=== PATIENT | female | born 1970 | race Caucasian/White ===

== ENCOUNTER 2016-09-22 16:09 | Inpatient (IN) | payer OTHER ==
[2016-09-22 16:19] VITALS: BMI 33.3
--- NOTE | 2016-09-22 16:38 | PDOC ---
History of Present Illness <Akanksha Cantu - Last Filed: 09/23/16 00:52> <Moni Sabillon - Last Filed: 09/23/16 18:34> - General Chief Complaint: Syncope/Near Syncope Stated Complaint: SYNCOPE Time Seen by Provider: 09/22/16 16:32 - History of Present Illness Initial Comments: 09/22/16 16:49 The patient is a 46 year old female, with a significant past medical history of bipolar disorder anxiety, who presents to the emergency department s/p syncopal episode while cleaning today. She states she became lightheaded and dizzy around 11:30AM, a couple hours after eating breakfast. She states she was mopping, became more dizzy and grabbed a glass of water. She states she became weak, dropped the glass of water and sat down. She reports momentarily fainting in the seat but denies falling. She reports her daughter witnessed this event and brought her to the ED. She states she is currently on her menstrual cycle. She reports increasing her lexapro a month ago. She reports throat pain and jaw pain last night, but states she is scheduled for oral surgery for periodontal disease soon. She denies chest pain, shortness of breath, and headache. She denies fever, chills, nausea, vomit, diarrhea and constipation. She denies dysuria, frequency , urgency and hematuria. Allergies: penicillins Past surgical history: cholecystectomy Social history: denies toxic habits (Akanksha Cantu) Past History <Akanksha Cantu - Last Filed: 09/23/16 00:52> - Past Medical History Psychiatric Problems: Yes (depression) - Surgical History Cholecystectomy: Yes - Immunization History Immunization Up to Date: Yes - Psycho/Social/Smoking Cessation Hx Anxiety: Yes (no medicine) Suicidal Ideation: No Smoking History: Never smoked Have you smoked in the past 12 months: No Hx Alcohol Use: No Drug/Substance Use Hx: No Substance Use Type: None <Moni Sabillon - Last Filed: 09/23/16 18:34> - Past Medical History Allergies/Adverse Reactions: Allergies Allergy/AdvReac Type Severity Reaction Status Date / Time nickel Allergy Verified 09/22/16 16:18 Penicillins Allergy Verified 09/22/16 16:18 Home Medications: Ambulatory Orders Bupropion HCl [Bupropion Xl] 300 mg PO DAILY 09/22/16 Escitalopram Oxalate [Lexapro -] 20 mg PO DAILY 09/22/16 Hydralazine HCl 10 mg PO BID 09/22/16 Risperidone 4 mg PO HS 09/22/16 Topiramate 50 mg PO BID 09/22/16 Zolpidem Tartrate [Ambien] 10 mg PO DAILY 09/22/16 Cardiac Specific PMH - Complaint Specific PMHX Angina: No Pulmonary Embolus: No <Moni Sabillon - Last Filed: 09/23/16 18:34> Review of Systems - Review of Systems Able to Perform ROS?: Yes <Akanksha Cantu - Last Filed: 09/23/16 00:52> <Moni Sabillon - Last Filed: 09/23/16 18:34> - Review of Systems Comments:: 09/22/16 16:49 CONSTITUTIONAL: Absent: fever, chills, diaphoresis, generalized weakness, malaise, loss of appetite HEENT: (+) Jaw pain and throat pain. Absent: rhinorrhea, nasal congestion, throat swelling, difficulty swallowing, mouth swelling, ear pain, eye pain, visual Changes CARDIOVASCULAR: (+) syncope, lightheadedness. Absent: chest pain, palpitations, irregular heart rate, peripheral edema RESPIRATORY: Absent: cough, shortness of breath, dyspnea with exertion, orthopnea, wheezing, stridor, hemoptysis GASTROINTESTINAL: Absent: abdominal pain, abdominal distension, nausea, vomiting, diarrhea, constipation, melena, hematochezia GENITOURINARY: Absent: dysuria, frequency, urgency, hesitancy, hematuria, flank pain, genital pain MUSCULOSKELETAL: Absent: myalgia, arthralgia, joint swelling SKIN: Absent: rash, itching, pallor HEMATOLOGIC/IMMUNOLOGIC: Absent: easy bleeding, easy bruising, lymphadenopathy, frequent infections ENDOCRINE: Absent: unexplained weight gain, unexplained weight loss, heat intolerance, cold intolerance NEUROLOGIC: (+) dizziness, Absent: headache, focal weakness or paresthesias, unsteady gait, seizure, mental status changes, bladder or bowel incontinence PSYCHIATRIC: Absent: anxiety, depression, suicidal or homicidal ideation, hallucinations. ( Akanksha Cantu) *Physical Exam <Akanksha Cantu - Last Filed: 09/23/16 00:52> <Moni Sabillon Last Filed: 09/23/16 18:34> - Vital Signs Last Vital Signs Temp Pulse Resp BP Pulse Ox 99.3 F 100 H 20 147/81 98 09/23/16 18:00 09/23/16 18:00 09/23/16 18:00 09/23/16 18:00 09/23/16 12:00 - Physical Exam Comments: 09/22/16 16:51 GENERAL: Well developed, well nourished. Awake and alert. No acute distress. HEENT: Normocephalic, atraumatic. PERRLA, EOMI. No conjunctival pallor. Sclera are non- icteric. Moist mucous membranes. Oropharynx is clear. NECK: Supple. Full ROM. No JVD. Carotid pulses 2+ and symmetric, without bruits. No thyromegaly. No lymphadenopathy. CARDIOVASCULAR: Regular rate and rhythm. No murmurs, rubs, or gallops. Distal pulses are 2+ and symmetric. PULMONARY: No evidence of respiratory distress. Lungs clear to auscultation bilaterally. No wheezing, rales or rhonchi. ABDOMINAL: Soft. Non-tender. Non-distended. No rebound or guarding. No organomegaly. Normoactive bowel sounds. MUSCULOSKELETAL Normal range of motion at all joints. No bony deformities or tenderness. No CVA tenderness. EXTREMITIES: No cyanosis. No clubbing. No edema. No calf tenderness. SKIN: Warm and dry. Normal capillary refill. No rashes. No jaundice. NEUROLOGICAL: Alert, awake, appropriate. Cranial nerves 2-12 intact. Normoreflexic in the upper and lower extremities. Normal speech. Toes are down-going bilaterally. Gait is normal without ataxia. PSYCHIATRIC: Cooperative. Good eye contact. Appropriate mood and affect. (Akanksha Cantu) Heart Score/ECG Review <Akanksha Cantu - Last Filed: 09/23/16 00:52> <Moni Sabillon - Last Filed: 09/23/16 18:34> - [place] Comment: 09/23/16 00:53 EKG was read by Dr. Sabillon at 16:31 Impression: Normal Sinus Rhythm (Akanksha Cantu) ED Treatment Course - LABORATORY CBC & Chemistry Diagram: 09/22/16 16:48 09/22/16 16:48 <Akanksha Cantu - Last Filed: 09/23/16 00:52> - LABORATORY CBC & Chemistry Diagram: 09/23/16 05:35 09/23/16 05:35 <RidgeMoni Wright - Last Filed: 09/23/16 18:34> - ADDITIONAL ORDERS Additional order review: Laboratory Results 09/23/16 05:35 Sodium 141 Potassium 4.0 Chloride 110 H Carbon Dioxide 22 Anion Gap 9 BUN 13 D Creatinine 0.8 D Random Glucose 95 Calcium 8.4 L Phosphorus 3.0 Magnesium 1.9 Ferritin 3.362 L Creatine Kinase 92 Troponin I < 0.02 Triglycerides 49 Cholesterol 168 Total LDL Cholesterol 69 HDL Cholesterol 97 H 09/23/16 09/22/16 05:35 16:48 RBC 3.35 L 3.42 L MCV 68.1 L 68.4 L MCHC 31.2 L 30.4 L RDW 17.3 H 17.0 H MPV 8.7 8.4 D Neutrophils % 61.1 D 79.0 D Lymphocytes % 29.2 D 14.4 D Monocytes % 8.1 5.5 Eosinophils % 0.5 0.3 D Basophils % 1.1 0.8 - RADIOLOGY Radiology Studies Ordered: Category Date Time Status HEAD CT WITHOUT CONTRAST [CT] Stat CT Scan 09/22/16 17:48 Completed CHEST PA & LAT [RAD] Stat Radiology 09/23/16 00:42 Completed Radiograph Interpretation: 09/22/16 19:13 EXAM: HEAD CT WITHOUT CONTRAST was read by Mahogany Ceja MD at 19:05 EST FINDINGS: No acute intracranial hemorrhage, midline shift or extra-axial collection. No acute territorial infarction. Sinuses and mastoid air cells are clear. No acute calvarial fracture. (Akanksha Cantu) - Medications Given in the ED: ED Medications Discontinued Medications Generic Name Dose Route Start Last Admin Trade Name Freq PRN Reason Stop Dose Admin Sodium Chloride 1,000 mls @ 42 mls/hr 09/22/16 16:45 09/22/16 16:58 Normal Saline - IV 42 mls/hr ASDIR JOSÉ MIGUEL Administration Levofloxacin 100 mls @ 100 mls/hr 09/22/16 21:09 09/22/16 21:52 Levaquin 500 Mg Premixed Ivpb - IVPB 09/22/16 22:08 100 mls/hr ONCE ONE Administration Influenza Virus Vaccine 45 mcg 09/23/16 09:00 09/23/16 10:12 Fluvirin IM 09/23/16 09:01 45 mcg .ONCE ONE Administration Zolpidem Tartrate 10 mg 09/23/16 00:50 09/23/16 02:03 Ambien - PO 09/23/16 00:51 Not Given ONCE ONE Medical Decision Making <Akanksha Cantu - Last Filed: 09/23/16 00:52> <Moni Sabillon - Last Filed: 09/23/16 18:34> - Medical Decision Making 09/22/16 16:48 46 yo female was mopping her floor and started and fainted . she actually sat down and went to drink some water when she fainted and her water glass smashed to the floor -pt didn't have significant chest pain but did feel very lightheaded. -orthostatics were done by the RN and the pt BP did not change with positiion -cardiac enzyme was negative,no acute signs of ischemia on ekg -ct head negative for any acute intracranial pathology -pt admitted to telemetry and case discussed e Dr Francis who admitted this pt 09/23/16 18:27 (Moni Sabillon) *DC/Admit/Observation/Transfer <Akanksha Cantu - Last Filed: 09/23/16 00:52> - Discharge Dispostion Admit: Yes <Moni Sabillon - Last Filed: 09/23/16 18:34> Diagnosis at time of Disposition: Lightheadedness Syncope Qualifiers: Syncope type: unspecified Qualified Code(s): R55 - Syncope and collapse Anemia Qualifiers: Anemia type: unspecified type Qualified Code(s): D64.9 - Anemia, unspecified - Attestations Scribe Attestion: 09/22/16 16:51 Documentation prepared by Akanksha Cantu, acting as medical laboratory specialist for Moni Sabillon MD (Akanksha Cantu)
[2016-09-22] MEDS ORDERED: SODIUM CHLORIDE 1,000 ML IV SCH (16:45)
[2016-09-22 17:01] LABS: BASOPHIL 0.8 % (0-2.0); EOSINOPHIL 0.3 % (0-4.5); MCH 20.8 pg (25.7-33.7); MCHC 30.4 g/dl (32.0-36.0); MEAN CELL VOLUME 68.4 fl (80-96); MEAN PLT VOLUME 8.4 fl (7.5-11.1); PLATELET COUNT 354 K/MM3 (134-434); WHITE BLOOD COUNT 8.1 K/mm3 (4.0-10.0)
[2016-09-22 17:27] LABS: ANISOCYTOSIS 1+; HYPOCHROMIA 3+; MICROCYTOSIS 1+; OVALOCYTES 1+; PLATELET ESTIMATE ADEQUATE (NORMAL); POIKILOCYTOSIS 1+; POLYCHROMASIA 1+; TARGET CELLS FEW
[2016-09-22 17:36] LABS: ALBUMIN 3.3 g/dl (3.4-5.0); ANION GAP 10 (8-16); BILIRUBIN,TOTAL 0.4 mg/dL (0.2-1.0); CALCIUM 8.3 mg/dL (8.5-10.1); CO2 22 mmol/L (21-32); CREATININE 1.2 mg/dL (0.55-1.02); GLUCOSE,RANDOM 109 mg/dL (74-106); SGOT/AST 16 U/L (15-37); SGPT/ALT 17 U/L (12-78); TOT PROT 6.5 g/dl (6.4-8.2)
[2016-09-22 17:38] LABS: ALK PHOS 63 U/L (45-117); TROPONIN I < 0.02 ng/ml (0.00-0.05)
[2016-09-22 19:35] LABS: URINE APPEARANCE SL CLOUDY; URINE BILIRUBIN NEGATIVE (NEGATIVE); URINE BLOOD 3+ (NEGATIVE); URINE COLOR RED; URINE GLUCOSE (UA) NEGATIVE (NEGATIVE); URINE KETONE TRACE (NEGATIVE); URINE LEUK ESTERASE 1+ (NEGATIVE); URINE NITRITE POSITIVE (NEGATIVE); URINE PROTEIN 3+ (NEGATIVE); URINE UROBILINOGEN 1.0 E.U/dl E.U./dl (0.2-1.0)
[2016-09-22 19:48] LABS: URINE RBC 1000 /hpf (0-3); URINE WBC SMALL /hpf (3-5)
[2016-09-22 19:49] LABS: URINE BACTERIA MODERATE /hpf (NONE SEEN); URINE MUCUS 3+
[2016-09-22 20:04] LABS: URINE MARIJUANA THC NEGATIVE ng/ml (CUTOFF=50)
[2016-09-22] MEDS ORDERED: LEVOFLOXACIN 500 MG IVPB 100 ML IVPB ONE (21:09)
[2016-09-22 22:30] LABS: TROPONIN I < 0.02 ng/ml (0.00-0.05)
--- NOTE | 2016-09-23 00:54 | HP ---
CHIEF COMPLAINT: Lightheaded, Syncope PCP: HISTORY OF PRESENT ILLNESS: This is a 46 y/o female with a past medical history of Bipolar Depression, Chronic UTIs, BIBI. Who presents to the emergency department with lightheadedness , syncope x 1 day. Patient reports increased fatigue, dizziness with having a syncopal episode < 30 secs, while mopping her floors. Patient reports having her menstrual period Day 2- heavy without clots using 2PDs/hr. Patient reports being told she has BIBI last year while in the Psych Unit at [facility]. She reports not doing a f/u with a PMD. Patient reports being told she has a "tumor" on her uterus years ago, last SUSTAINABILITY COORDINATOR exam > 5 yrs. Patient denies fever, chills, cough, SOB, CP, V/D, constipation, dysuria ER course was notable for: (1) CT Brain- negative ICH, mass or lesion (2) Hgb 7.1 (3) CHIVO- 2.0/1.2 Recent Travel: None PAST MEDICAL HISTORY: See HPI PAST SURGICAL HISTORY: x2 Cholecystectomy Social History: Smoking: Never Alcohol: None Drugs: None Lives alone Family History: Grandmother: Diabetes Mellitus Allergies nickel Allergy (Verified 09/22/16 16:18) Penicillins Allergy (Verified 09/22/16 16:18) HOME MEDICATIONS: Home Medications Medication Instructions Recorded Bupropion HCl [Bupropion Xl] 300 mg PO DAILY 09/22/16 Escitalopram Oxalate [Lexapro -] 20 mg PO DAILY 09/22/16 Hydralazine HCl 10 mg PO BID 09/22/16 Risperidone 4 mg PO HS 09/22/16 Topiramate 50 mg PO BID 09/22/16 Zolpidem Tartrate [Ambien] 10 mg PO DAILY 09/22/16 REVIEW OF SYSTEMS CONSTITUTIONAL: fatigue Absent: fever, chills, diaphoresis, generalized weakness, malaise, loss of appetite, weight change HEENT: Absent: rhinorrhea, nasal congestion, throat pain, throat swelling, difficulty swallowing, mouth swelling, ear pain, eye pain, visual changes CARDIOVASCULAR: syncope, lightheadedness Absent: chest pain, palpitations, irregular heart rate, lightheadedness, peripheral edema RESPIRATORY: Absent: cough, shortness of breath, dyspnea with exertion, orthopnea, wheezing, stridor, hemoptysis GASTROINTESTINAL: abdominal pain Absent: abdominal distension, nausea, vomiting, diarrhea, constipation, melena , hematochezia GENITOURINARY: Absent: dysuria, frequency, urgency, hesitancy, hematuria, flank pain, genital pain MUSCULOSKELETAL: Absent: myalgia, arthralgia, joint swelling, back pain, neck pain SKIN: Absent: rash, itching, pallor HEMATOLOGIC/IMMUNOLOGIC: Absent: easy bleeding, easy bruising, lymphadenopathy, frequent infections ENDOCRINE: Absent: unexplained weight gain, unexplained weight loss, heat intolerance, cold intolerance NEUROLOGIC: dizziness Absent: headache, focal weakness or paresthesias, unsteady gait, seizure, mental status changes, bladder or bowel incontinence PSYCHIATRIC: Absent: anxiety, depression, suicidal or homicidal ideation, hallucinations. PHYSICAL EXAMINATION Vital Signs - 24 hr 09/22/16 09/22/16 09/22/16 16:16 23:22 23:29 Temperature 98.3 F Pulse Rate 100 H Pulse Rate [ 95 H 106 H Apical] Respiratory 20 Rate Blood Pressure 128/80 Blood Pressure 139/85 [Left Arm] O2 Sat by Pulse 100 Oximetry (%) 09/22/16 23:30 Temperature Pulse Rate Pulse Rate [ 109 H Apical] Respiratory Rate Blood Pressure Blood Pressure 129/89 [Left Arm] O2 Sat by Pulse Oximetry (%) GENERAL: Awake, alert, fully oriented, and anxious in no acute distress. HEAD: Normal with no signs of trauma. EYES: Pupils equal, round and reactive to light, extraocular movements intact, sclera anicteric, conjunctiva clear. No lid lag. EARS, NOSE, THROAT: Ears normal, nares patent, oropharynx clear without exudates. Moist mucous membranes. NECK: Normal range of motion, supple without lymphadenopathy, JVD, or masses. LUNGS: Breath sounds equal, clear to auscultation bilaterally. No wheezes, and no crackles. No accessory muscle use. HEART: Regular rate and rhythm, normal S1 and S2 without murmur, rub or gallop. ABDOMEN: Soft, obese, +tenderness to lower aspect, not distended, normoactive bowel sounds, no guarding, no rebound, no masses. No hepatomegaly or splenomegaly. MUSCULOSKELETAL: Normal range of motion at all joints. No bony deformities or tenderness. No CVA tenderness. UPPER EXTREMITIES: 2+ pulses, warm, well-perfused. No cyanosis. No clubbing. Cap refill <2 seconds. No peripheral edema. LOWER EXTREMITIES: 2+ pulses, warm, well-perfused. No calf tenderness. No peripheral edema. NEUROLOGICAL: Cranial nerves II-XII intact. Normal speech. Gait not observed. PSYCHIATRIC: Cooperative. Good eye contact. Appropriate mood and affect. SKIN: Warm, dry, normal turgor, no rashes or lesions noted. Laboratory Results - last 24 hr 09/22/16 09/22/16 09/22/16 16:48 16:48 16:48 WBC 8.1 RBC 3.42 L Hgb 7.1 L D Hct 23.4 L MCV 68.4 L MCHC 30.4 L RDW 17.0 H Plt Count 354 MPV 8.4 D Neutrophils % 79.0 D Lymphocytes % 14.4 D Monocytes % 5.5 Eosinophils % 0.3 D Basophils % 0.8 Platelet Estimate Adequate Platelet Comment No clumping noted Polychromasia 1+ Hypochromic-Microcytic 3+ Poikilocytosis 1+ Basophilic Stippling 1+ Anisocytosis 1+ Microcytosis 1+ Target Cells Few Ovalocytes 1+ Sodium 140 Potassium 4.2 Chloride 108 H Carbon Dioxide 22 Anion Gap 10 BUN 20 H D Creatinine 1.2 H D Creat Clearance w eGFR 48.36 Random Glucose 109 H Calcium 8.3 L Total Bilirubin 0.4 D AST 16 D ALT 17 D Alkaline Phosphatase 63 D Creatine Kinase 94 Troponin I < 0.02 Total Protein 6.5 Albumin 3.3 L HDL Cholesterol 100 H Serum , Qual Negative Urine Color Red Urine Appearance Sl cloudy Urine pH 7.0 Ur Specific [place] 1.020 Urine Protein 3+ H Urine Glucose (UA) Negative Urine Ketones Trace H Urine Blood 3+ H Urine Nitrite Positive Urine Bilirubin Negative Urine Urobilinogen 1.0 e.u/dl Ur Leukocyte Esterase 1+ H Urine RBC 1000 Urine WBC Small Ur Epithelial Cells Rare Urine Bacteria Moderate Urine Mucus 3+ Opiates Screen Methadone Screen Barbiturate Screen Phencyclidine Screen Ur Amphetamines Screen MDMA (Ecstasy) Screen Benzodiazepines Screen Cocaine Screen U Marijuana (THC) Screen 09/22/16 09/22/16 16:48 21:45 WBC RBC Hgb Hct MCV MCHC RDW Plt Count MPV Neutrophils % Lymphocytes % Monocytes % Eosinophils % Basophils % Platelet Estimate Platelet Comment Polychromasia Hypochromic-Microcytic Poikilocytosis Basophilic Stippling Anisocytosis Microcytosis Target Cells Ovalocytes Sodium Potassium Chloride Carbon Dioxide Anion Gap BUN Creatinine Creat Clearance w eGFR Random Glucose Calcium Total Bilirubin AST ALT Alkaline Phosphatase Creatine Kinase 114 Troponin I < 0.02 Total Protein Albumin HDL Cholesterol Serum , Qual Urine Color Urine Appearance Urine pH Ur Specific [place] Urine Protein Urine Glucose (UA) Urine Ketones Urine Blood Urine Nitrite Urine Bilirubin Urine Urobilinogen Ur Leukocyte Esterase Urine RBC Urine WBC Ur Epithelial Cells Urine Bacteria Urine Mucus Opiates Screen Negative Methadone Screen Negative Barbiturate Screen Negative Phencyclidine Screen Negative Ur Amphetamines Screen Negative MDMA (Ecstasy) Screen Negative Benzodiazepines Screen Negative Cocaine Screen Negative U Marijuana (THC) Screen Negative - RADIOLOGY Radiograph Interpretation: 09/22/16 19:13 EXAM: HEAD CT WITHOUT CONTRAST was read by Mahogany Ceja MD at 19:05 EST FINDINGS: No acute intracranial hemorrhage, midline shift or extra-axial collection. No acute territorial infarction. Sinuses and mastoid air cells are clear. No acute calvarial fracture. ASSESSMENT/PLAN: This is a 46 y/o female with a PMHx of: Bipolar Depression, BIBI. Who presents to the ED with lightheadedness, syncope. Placed in Tele Observation for Syncope , Symptomatic Anemia for further evaluation for their emergent condition. Plan: 1. Syncope - Likely secondary to Anemia vs Arrhythmia - Tele monitoring - CT Brain- neg ICH, mass or lesion - EKG: NSR with T wave abnormality - Echo and Carotid Doppler in am - Cardiac Enzymes neg x2 - Will continue to trend 2. Anemia - Likely secondary to BIBI vs Fibroid vs Perimenopausal - Baseline 8.6 - Discussed need for a blood transfusion with patient, including risks and benefits, patient adamantly refused. - FE, TIBC, Ferritin add on-pending - Will monitor CBC closely - Ferrous Sulfate - f/u with Heme, SUSTAINABILITY COORDINATOR, and PCP in outpatient 3. UTI - +nitrate, +3 protein, +1 leukocyte esterase, mod bacteria - Urine Culture-pending - Levofloxacin given in ED - Will continue Levofloxacin (no cephalosporins with PCN allergy hx) - Monitor vitals, CBC 4. CHIVO - Likely secondary to UTI - Gentle IVF - Monitor renal function 5. Bipolar Depression - Patient denies Suicidal or Homicidal Ideation at present - Continue home meds 6. FEN - PO Fluids tolerated - Replete lytes prn - Regular Diet 7. DVT Prophylaxis - OOB - SCDs - Hold ACs secondary to Anemia Code Status: Full Code Problem List - Problem (1) Anemia Code(s): D64.9 - ANEMIA, UNSPECIFIED Qualifiers: Anemia type: unspecified type Qualified Code(s): D64.9 - Anemia, unspecified (2) Syncope Code(s): R55 - SYNCOPE AND COLLAPSE Qualifiers: Syncope type: unspecified Qualified Code(s): R55 - Syncope and collapse (3) Lightheadedness Code(s): R42 - DIZZINESS AND GIDDINESS (4) UTI (urinary tract infection) Code(s): N39.0 - URINARY TRACT INFECTION, SITE NOT SPECIFIED (5) CHIOV (acute kidney injury) Code(s): N17.9 - ACUTE KIDNEY FAILURE, UNSPECIFIED (6) Depression Code(s): F32.9 - MAJOR DEPRESSIVE DISORDER, SINGLE EPISODE, UNSPECIFIED Qualifiers: Depression Type: major depressive disorder Major depression recurrence : recurrent Active/Remission status: currently active Major depression episode severity: severe Psychotic features: without psychotic features Qualified Code(s): F33.2 - Major depressive disorder, recurrent severe without psychotic features (7) DVT prophylaxis Code(s): CLZ4296 - Visit type - Emergency Visit Emergency Visit: Yes Care time: The patient presented to the Emergency Department on the above date and was hospitalized for further evaluation of their emergent condition. - New Patient This patient is new to me today: Yes Date on this admission: 09/23/16 - Critical Care Critical Care patient: No
[2016-09-23] MEDS: ZOLPIDEM TARTRATE 5 MG TABLET PO ONE ×2 (01:41→02:03)
[2016-09-23] MEDS ORDERED: ZOLPIDEM TARTRATE 5 MG TABLET ONE (01:43)
[2016-09-23] MEDS ORDERED: diphenhydrAMINE HCL 25 MG CAPSULE (FP) PO ONE ×2 (02:05→21:41)
[2016-09-23 07:15] LABS: BASOPHIL 1.1 % (0-2.0); EOSINOPHIL 0.5 % (0-4.5); MCH 21.3 pg (25.7-33.7); MCHC 31.2 g/dl (32.0-36.0); MEAN CELL VOLUME 68.1 fl (80-96); MEAN PLT VOLUME 8.7 fl (7.5-11.1); NEUTROPHILS 61.1 % (42.8-82.8); PLATELET COUNT 356 K/MM3 (134-434); RDW 17.3 % (11.6-15.6); WHITE BLOOD COUNT 5.5 K/mm3 (4.0-10.0)
[2016-09-23 07:55] LABS: ANION GAP 9 (8-16); CALCIUM 8.4 mg/dL (8.5-10.1); CO2 22 mmol/L (21-32); CREATININE 0.8 mg/dL (0.55-1.02); GLUCOSE,RANDOM 95 mg/dL (74-106); MAGNESIUM 1.9 mg/dL (1.8-2.4)
[2016-09-23 08:00] LABS: CHOLESTEROL 168 mg/dL (50-200); LDL CHOLESTEROL (ONLY SJRH) 69 mg/dL (5-100); TROPONIN I < 0.02 ng/ml (0.00-0.05)
[2016-09-23] MEDS ORDERED: INFLUENZA VACCINE 45 MCG/0.5 ML (MDV 16-17) IM ONE (09:00)
--- NOTE | 2016-09-23 09:27 | PN ---
Teaching Attending Note Name of Resident: Esthela Cervantes ATTENDING PHYSICIAN STATEMENT I saw and evaluated the patient. I reviewed the resident's note and discussed the case with the resident. I agree with the resident's findings and plan as documented. Patient feels lightheaded when stands up, having heavy menstrual bleed for the 1st time. refusing blood transfusion since afraid that will get HIV or hepatitis C On the monitor patient's HR is 106. Vital Signs Temperature 99.2 F 09/23/16 04:12 Pulse Rate 84 09/23/16 04:12 Respiratory Rate 18 09/23/16 04:12 Blood Pressure 127/75 09/23/16 04:12 O2 Sat by Pulse Oximetry (%) 100 09/23/16 04:08 CBCD WBC 5.5 K/mm3 (4.0-10.0) D 09/23/16 05:35 RBC 3.35 M/mm3 (3.60-5.2) L 09/23/16 05:35 Hgb 7.1 GM/dL (10.7-15.3) L 09/23/16 05:35 Hct 22.8 % (32.4-45.2) L 09/23/16 05:35 MCV 68.1 fl (80-96) L 09/23/16 05:35 MCHC 31.2 g/dl (32.0-36.0) L 09/23/16 05:35 RDW 17.3 % (11.6-15.6) H 09/23/16 05:35 Plt Count 356 K/MM3 (134-434) 09/23/16 05:35 MPV 8.7 fl (7.5-11.1) 09/23/16 05:35 CMP Sodium 141 mmol/L (136-145) 09/23/16 05:35 Potassium 4.0 mmol/L (3.5-5.1) 09/23/16 05:35 Chloride 110 mmol/L (98-107) H 09/23/16 05:35 Carbon Dioxide 22 mmol/L (21-32) 09/23/16 05:35 Anion Gap 9 (8-16) 09/23/16 05:35 BUN 13 mg/dL (7-18) D 09/23/16 05:35 Creatinine 0.8 mg/dL (0.55-1.02) D 09/23/16 05:35 Creat Clearance w eGFR 48.36 (>60) 09/22/16 16:48 Random Glucose 95 mg/dL (74-106) 09/23/16 05:35 Calcium 8.4 mg/dL (8.5-10.1) L 09/23/16 05:35 Total Bilirubin 0.4 mg/dL (0.2-1.0) D 09/22/16 16:48 AST 16 U/L (15-37) D 09/22/16 16:48 ALT 17 U/L (12-78) D 09/22/16 16:48 Alkaline Phosphatase 63 U/L (45-117) D 09/22/16 16:48 Total Protein 6.5 g/dl (6.4-8.2) 09/22/16 16:48 Albumin 3.3 g/dl (3.4-5.0) L 09/22/16 16:48 CARDIAC ENZYMES Creatine Kinase 92 IU/L (26-192) 09/23/16 05:35 Troponin I < 0.02 ng/ml (0.00-0.05) 09/23/16 05:35 Current Medications Generic Name Dose Route Start Last Admin Trade Name Freq PRN Reason Stop Dose Admin Sodium Chloride 1,000 mls @ 42 mls/hr 09/22/16 16:45 09/22/16 16:58 Normal Saline - IV 42 mls/hr ASDIR JOSÉ MIGUEL Administration Levofloxacin 100 mls @ 100 mls/hr 09/23/16 10:00 Levaquin 500 Mg Premixed Ivpb - IVPB DAILY [facility] Home Medications Medication Instructions Recorded Bupropion HCl [Bupropion Xl] 300 mg PO DAILY 09/22/16 Escitalopram Oxalate [Lexapro -] 20 mg PO DAILY 09/22/16 Hydralazine HCl 10 mg PO BID 09/22/16 Risperidone 4 mg PO HS 09/22/16 Topiramate 50 mg PO BID 09/22/16 Zolpidem Tartrate [Ambien] 10 mg PO DAILY 09/22/16 ASSESSMENT AND PLAN: This is a 46 y/o female with a PMHx of: Bipolar Depression who presents to the ED with lightheadedness, syncope and having heavy menstruation. # s/p syncope due to acute anemia continue to monitor in tele. Cardiac Enzymes neg x2 #Acute Microcytic anemia due to heavy menstrual bleed patient is refusing transfusion since afraid that will get HIv ot Hepatitis C. - Baseline 8.6, FE, TIBC, Ferritin add on-pending, Hematology consult since patient refusing transfusion possible Iron transfusion or Growth Factor to be given - Will monitor CBC , Ferrous Sulfate po. # Heavy mentrual bleed will get OBGYN to be consulted # Acute UTI will continue with Levaquin IV since patient is allergic to PCN # CHIVO on IVF improved 1.2-->0.8Cr. # Bipolar Depression continue home meds DVT Prophylaxis: OOB, SCDs, Hold ACs secondary to Anemia
[2016-09-23] MEDS: LEVOFLOXACIN 500 MG IVPB 100 ML IVPB SCH (10:09)
[2016-09-23] MEDS ORDERED: SODIUM CHLORIDE 1,000 ML IV SCH (10:52)
--- NOTE | 2016-09-23 11:21 | EKG ---
Test Reason : Blood Pressure : / mmHG Vent. Rate : 083 BPM Atrial Rate : 083 BPM P-R Int : 158 ms QRS Dur : 076 ms QT Int : 352 ms P-R-T Axes : 041 039 064 degrees QTc Int : 413 ms NORMAL SINUS RHYTHM NONSPECIFIC T WAVE ABNORMALITY ABNORMAL ECG NO PREVIOUS ECGS AVAILABLE Confirmed by HENOK EMERY MD ([id number]) on 09/23/2016 11:21:06 AM Referred By: Confirmed By:HENOK EMERY MD
[2016-09-23 12:00] LABS: FERRITIN 3.362 ng/ml (6.9-282.5)
--- NOTE | 2016-09-23 16:55 | PN ---
Physical Exam: SUBJECTIVE: Patient seen and examined. She is complaining of lightheadedness. She also states that doesn't want to get blood transfusions. She was informed about the fall risk if she leaves her bed without assistance. She denies SOB, chest pain, palpitations. She currently has heavy menstruation. OBJECTIVE: Vital Signs Period Temp Pulse Resp BP Sys/Koenig Pulse Ox Last 24 Hr 99.2 F 76 20 120/68 GENERAL: The patient is awake, alert, and fully oriented, in no acute distress. HEAD: Normal with no signs of trauma. EYES: extraocular movements intact, sclera anicteric, conjunctiva clear. No ptosis. ENT: oropharynx clear without exudates, moist mucous membranes. NECK: Trachea midline, full range of motion, supple. LUNGS: Breath sounds equal, clear to auscultation bilaterally, no wheezes, no crackles, no accessory muscle use. HEART: Regular rate and rhythm, S1, S2 without murmur, rub or gallop. ABDOMEN: Soft, tender in lower abdomen, nondistended, normoactive bowel sounds, no guarding, no rebound. EXTREMITIES: no edema. NEUROLOGICAL: Normal speech, no facial asymmetry, gait not observed. PSYCH: Normal mood, normal affect. SKIN: Warm, dry, normal turgor, no rashes or lesions noted Active Medications Generic Name Dose Route Start Last Admin Trade Name Freq PRN Reason Stop Dose Admin Levofloxacin 100 mls @ 100 mls/hr 09/23/16 10:00 09/23/16 10:09 Levaquin 500 Mg Premixed Ivpb - IVPB 100 mls/hr DAILY JOSÉ MIGUEL Administration Sodium Chloride 1,000 mls @ 150 mls/hr 09/23/16 10:52 09/23/16 11:30 Normal Saline - IV 150 mls/hr ASDIR JOSÉ MIGUEL Administration HEAD CT WITHOUT CONTRAST was read by Mahogany Ceja MD at 19:05 EST FINDINGS: No acute intracranial hemorrhage, midline shift or extra-axial collection. No acute territorial infarction. Sinuses and mastoid air cells are clear. No acute calvarial fracture. ASSESSMENT/PLAN: This is a 46 y/o female with a PMHx of: Bipolar Depression, BIBI. Who presents to the ED with lightheadedness, syncope. Placed in Tele Observation for Syncope , Symptomatic Anemia for further evaluation for their emergent condition. Syncope: Likely secondary to Iron deficiency anemia Tele monitoring CT Brain- neg ICH, mass or lesion EKG: NSR with T wave abnormality Echo and Carotid Doppler ordered Cardiac Enzymes neg x3 BIBI: Likely secondary menorrhagia/Fibroid Baseline 8.6, today 7.1 Discussed need for a blood transfusion with patient, including risks and benefits, patient adamantly refused todaya nd wants to have alternative, called Hematology consultation f/u OBGYN consultation FE, TIBC, Ferritin add on-pending Will monitor CBC c Ferrous Sulfate UTI +nitrate, +3 protein, +1 leukocyte esterase, mod bacteria Urine Culture-pending Will continue Levofloxacin (no cephalosporins with PCN allergy hx) Monitor vitals, CBC CHIVO Likely secondary to UTI IVF Monitor renal function Bipolar Depression Continue home meds FEN - PO Fluids tolerated -No changes - Regular Diet DVT Prophylaxis SCDs Hold ACs secondary to Anemia Code Status: Full Code Disposition: Admitted to inpatient Problem List - Problems (1) CHIVO (acute kidney injury) Code(s): N17.9 - ACUTE KIDNEY FAILURE, UNSPECIFIED (2) Anemia Code(s): D64.9 - ANEMIA, UNSPECIFIED Qualifiers: Anemia type: unspecified type Qualified Code(s): D64.9 - Anemia, unspecified (3) Lightheadedness Code(s): R42 - DIZZINESS AND GIDDINESS (4) Syncope Code(s): R55 - SYNCOPE AND COLLAPSE Qualifiers: Syncope type: unspecified Qualified Code(s): R55 - Syncope and collapse (5) UTI (urinary tract infection) Code(s): N39.0 - URINARY TRACT INFECTION, SITE NOT SPECIFIED (6) DVT prophylaxis Code(s): [id number] - Visit type - Emergency Visit Emergency Visit: Yes ED Registration Date: 09/23/16 Care time: The patient presented to the Emergency Department on the above date and was hospitalized for further evaluation of their emergent condition. - New Patient This patient is new to me today: Yes Date on this admission: 09/23/16 - Critical Care Critical Care patient: No - Discharge Referral Referred to [facility] Med P.C.: No
[2016-09-23] MEDS: FERROUS SO4 325 MG TABLET (FP) PO SCH (20:20)
[2016-09-23] MEDS: DOCUSATE SODIUM 100 MG CAPSULE (FP) PO SCH (20:20)
[2016-09-23] MEDS ORDERED: KETOROLAC TROMETHAMINE 30 MG/1 ML VIAL IVPUSH ONE (23:00)
[2016-09-24] MEDS: DOCUSATE SODIUM 100 MG CAPSULE (FP) PO SCH ×3 (05:07→21:58)
[2016-09-24 06:06] LABS: SERUM IRON 17 ug/dL (27-159); TOTAL IRON BINDING CAPACITY 416 ug/dL (250-450); UIBC 399 ug/dL (131-425)
[2016-09-24] MEDS ORDERED: PT OWN MED DRAWER 7, Y5N ONE (06:29)
[2016-09-24] MEDS ORDERED: ACETAMINOPHEN 325 MG TABLET (FP) PO ONE ×2 (06:39→21:34)
[2016-09-24 07:40] LABS: MCH 20.9 pg (25.7-33.7); MCHC 30.6 g/dl (32.0-36.0); MEAN CELL VOLUME 68.1 fl (80-96); MEAN PLT VOLUME 9.1 fl (7.5-11.1); PLATELET COUNT 330 K/MM3 (134-434); RDW 17.2 % (11.6-15.6); WHITE BLOOD COUNT 7.8 K/mm3 (4.0-10.0)
[2016-09-24] MEDS: FERROUS SO4 325 MG TABLET (FP) PO SCH ×3 (09:00→17:17)
[2016-09-24] MEDS: LEVOFLOXACIN 500 MG IVPB 100 ML IVPB SCH (09:27)
--- NOTE | 2016-09-24 10:24 | CONSULT ---
Consult Consult Specialty:: Hematology Referred by:: Dr Montes Reason for Consultation:: anemia, heavy menstrual bleeding - History of Present Illness Chief Complaint: dizziness History of Present Illness: 46 y/o F w hx recent heavy mensrual bleeding , hx uterine "tumor" ? fibroid in past, last community health agent exam 7 yrs ago, hx mild anemia in past , no Tx , occ. iron supplementation but does not tolerate it well, developed lightheadedness/ syncope after bleeding. Her Hgb was in 7-8 renge , now 6-7 range, microcytic; she has no family hx hematologic problems . Syncope w/u neg so far. Pt started on oral iron but not tolerating it well , abdominal pains /cramps.Pt refused Tx' s because she fears getting HIV , hepatitis.Currently she is not lightheaded, feels better. - History Source History Provided By: Patient Limitations to Obtaining History: No Limitations - Past Medical History CREDIT SUPPORT SPECIALIST: No: Alzheimer's, CVA, Dementia, Migraine, Multiple Sclerosis, Peripheral Neuropathy, Parkinson's, Seizure, Syncope, TIA, Vertigo, Other Cardio/Vascular: No: AFIB, Aneurysm, Aortic Insufficiency, Aortic Stenosis, CAD , CHF, Deep Vein Thrombosis, HTN, Hyperlipdemia, [place], Mitral Insufficiency, Mitral Stenosis, Murmur, Pulmonary Hypertension, Other Pulmonary: No: Asthma, Bronchitis, Cancer, COPD, O2 Dependent, Pneumonia, Previously Intubated, Pulmonary Embolus, Pulmonary Fibrosis, Sleep Apnea, Other Gastrointestinal: No: Ascites, Cancer, Constipation, Crohn's Disease, Diverticulitis, Diverticulosis, Esophageal Varices, Gastritis, GERD, GI Bleed, Hemorrhoids, Hiatal Hernia, Inflamatory Bowel Disease, Irritable Bowel Disease, Pancreatitis, Peptic Ulcer Disease, Ulcerative Colitis, Other Hepatobiliary: No: Cirrhosis, Cholelithiasis, Cholecystitis, Choledocholithiasis , Hepatitis A, Hepatitis B, Hepatitis C, Other Renal/: No: Renal Failure, Renal Inusuff, BPH, Cancer, Hematuria, Hemodialysis , Neurogenic Bladder, Renal Calculi, UTI, Other Reproductive: Yes: Fibroids ...LMP: 09/22/16 Heme/Onc: Yes: Anemia. No: B12 Deficiency, Bleeding Disorder, Cancer, Current Chemotherapy, Current Radiation Therapy, Hemochromatosis, Hypercoaguable State, Myeloproliferative Synd, Sickle Cell Disease, Sickle Cell Trait, Thrombocytopenia, Other Infectious Disease: No: AIDS, C-Diff, Herpes Zoster, HIV, MRSA, STD's, Tuberculosis, VREF, Other Psych: Yes: Bipolar Musculoskeletal: No: Bursitis, Chronic low back pain, Hemiparesis, Hemiplegia, Osteoarthritis, Paraplegia, Other Rheumatology: No: Fibromyalgia, Gout, Lupus, Rheumatoid Arthritis, Sarcoidosis, Vasculitis, Other Endocrine: No: Josué's Disease, [place]'s Disease, Diabetes Insipidus, Diabetes Mellitus, Hyperparathyroidism, Hyperthyroidism, Hypothyroidism, Osteopenia, SIADH, Other Dermatology: Yes: Other (pruritus feet) - Past Surgical History Past Surgical History: No: None, AAA Repair, AICD, Amputation, Appendectomy, Arthrosocopy, AV Fistula/Graft, Bariatric Surgery, Breast Biopsy, Bypass, CABG, Carotid Endarterectomy, Cataract Removal, Cholecystectomy, Colectomy, Colonoscopy, Colostomy, Craniotomy, , Cystectomy, Hernia Repair, Hysterectomy, Ileal Conduit, Ileosotomy, Joint Replacement, Kidney Transplant, Laminectomy, Liver Transplant, Mastectomy, Nephrectomy, Oopherectomy, Orchiectomy, Permanent Pacemaker, Prostatectomy, Splenectomy, Stent, Thoracotomy , TURP, Tonsillectomy, Tubal Ligation, Upper Endoscopy, Valve Replacement, Vasectomy, Vein Stripping/Ligation - Alcohol/Substance Use Hx Alcohol Use: No - Smoking History Smoking history: Never smoked Have you smoked in the past 12 months: No Home Medications - Allergies Allergies/Adverse Reactions: Allergies Allergy/AdvReac Type Severity Reaction Status Date / Time nickel Allergy Verified 09/22/16 16:18 Penicillins Allergy Verified 09/22/16 16:18 - Home Medications Home Medications: Ambulatory Orders Bupropion HCl [Bupropion Xl] 300 mg PO DAILY 09/22/16 Escitalopram Oxalate [Lexapro -] 20 mg PO DAILY 09/22/16 Hydralazine HCl 10 mg PO BID 09/22/16 Risperidone 4 mg PO HS 09/22/16 Topiramate 50 mg PO BID 09/22/16 Zolpidem Tartrate [Ambien] 10 mg PO DAILY 09/22/16 Family Disease History - Family Disease History Family History: Denies Review of Systems - Review of Systems Constitutional: reports: Weakness Eyes: denies: No Symptoms, Blind Spots, Blurred Vision, Double Vision, Eye Pain , Floaters, Photophobia, Recent Change in Vision, Other HENT: denies: No Symptoms, Difficult Swallowing, Ear Discharge, Ear Pain, Epistaxis, Gingival Bleeding, Hearing Loss, Mouth Swelling, Nasal Congestion, Ocular Prosthesis, Throat Pain, Toothache, Ringing in Ears, Other Neck: denies: No Symptoms, Decreased ROM, Lumps, Pain on Movement, Stiffness, Swollen Glands, Tenderness, Other Cardiovascular: denies: No Symptoms, Chest Pain, Edema, Palpitations, Shortness of Breath, Other Respiratory: denies: No Symptoms, Cough, Exercise Intolerance, Hemoptysis, Orthopnea, PND, Snoring, SOB, SOB on Exertion, Wheezing, Other Gastrointestinal: denies: No Symptoms, Abdominal Pain, Bloating, Constipation, Diarrhea, Dysphagia, Indigestion, Melena, Nausea, Rectal Bleeding, Vomiting, Vomiting Blood, Other Genitourinary: denies: No Symptoms, Burning, Discharge, Dysuria, Flank Pain, Frequency, Hematuria, Incontinence, Lesions, Menses, Pain, Testicular Mass, Testicular Pain, Testicular Swelling, Urgency, Vaginal Bleeding, Other Breasts: denies: No Symptoms Reported, See HPI, Breast Implants, Discharge from Nipple, Lumps, Pain, Skin Changes, Other Musculoskeletal: denies: No Symptoms, Back Pain, Crepitus, Decreased ROM, Extremity Pain, Joint Pain, Joint Swelling, Muscle Pain, Muscle Cramps, Muscle Weakness, Other Integumentary: reports: Pruritis Neurological: reports: Dizziness, Headache (occ migrane type mahajan's) Endocrine: denies: No Symptoms, Excessive Sweating, Flushing, Increased Hunger, Increased Thirst, Intolerance to Cold, Intolerance to Heat, Unexplained Weight Gain, Unexplained Weight Loss, Other Hematology/Lymphatic: reports: Excessive Bleeding (menstrual) Psychiatric: reports: Anxiety Physical Exam Vital Signs: Vital Signs Temperature 98.6 F 09/24/16 06:00 Pulse Rate 96 H 09/24/16 06:00 Respiratory Rate 18 09/24/16 06:00 Blood Pressure 129/88 09/24/16 06:00 O2 Sat by Pulse Oximetry (%) 100 09/24/16 04:00 Constitutional: Yes: Well Nourished, No Distress, Calm, Obese Eyes: Yes: WNL, Conjunctiva Clear, EOM Intact HENT: Yes: WNL, Atraumatic, Normocephalic Neck: Yes: WNL, Supple, Trachea Midline Cardiovascular: Yes: WNL, Regular Rate and Rhythm Respiratory: Yes: WNL, Regular, CTA Bilaterally Gastrointestinal: Yes: WNL, Normal Bowel Sounds, Soft, Abdomen, Obese Musculoskeletal: Yes: WNL Extremities: Yes: WNL Edema: No Labs: CBC, BMP 09/24/16 05:35 Problem List - Problems (1) Anemia, iron deficiency Code(s): D50.9 - IRON DEFICIENCY ANEMIA, UNSPECIFIED (2) Iron deficiency anemia due to chronic blood loss Code(s): D50.0 - IRON DEFICIENCY ANEMIA SECONDARY TO BLOOD LOSS (CHRONIC) Assessment/Plan Pt appears to have symptomatic anemia due to heavy menstrual bleeding and iron deficiency(card given); she does not tolerate oral iron well and refuses Tx's despite a discussion of risks /benefits. Suggested one dose of iv iron now and then weekly doses in office [phone] ; pt may be able to tolerate a single dose oral liquid iron qd on discharge , assuming pt not orthostatic and compensated. Pt seen by community health agent ; she likely needs a hyst.for fibroids in near future.
[2016-09-24] MEDS ORDERED: IRON SUCROSE INJECTION 200 MG in SODIUM CHLORIDE 100 ML IVPB ONE (11:15)
--- NOTE | 2016-09-24 12:33 | CON.OBG ---
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: No: Alzheimer's, CVA, Dementia, Migraine, Multiple Sclerosis, Peripheral Neuropathy, Parkinson's, Seizure, Syncope, TIA, Vertigo, Other Cardio/Vascular: No: AFIB, Aneurysm, Aortic Insufficiency, Aortic Stenosis, CAD , CHF, Deep Vein Thrombosis, HTN, Hyperlipdemia, [place], Mitral Insufficiency, Mitral Stenosis, Murmur, Pulmonary Hypertension, Other Pulmonary: No: Asthma, Bronchitis, Cancer, COPD, O2 Dependent, Pneumonia, Previously Intubated, Pulmonary Embolus, Pulmonary Fibrosis, Sleep Apnea, Other Gastrointestinal: No: Ascites, Cancer, Constipation, Crohn's Disease, Diverticulitis, Diverticulosis, Esophageal Varices, Gastritis, GERD, GI Bleed, Hemorrhoids, Hiatal Hernia, Inflamatory Bowel Disease, Irritable Bowel Disease, Pancreatitis, Peptic Ulcer Disease, Ulcerative Colitis, Other Hepatobiliary: No: Cirrhosis, Cholelithiasis, Cholecystitis, Choledocholithiasis , Hepatitis A, Hepatitis B, Hepatitis C, Other Renal/: No: Renal Failure, Renal Inusuff, BPH, Cancer, Hematuria, Hemodialysis , Neurogenic Bladder, Renal Calculi, UTI, Other ...LMP: 09/22/16 ...: No Infectious Disease: No: AIDS, C-Diff, Herpes Zoster, HIV, MRSA, STD's, Tuberculosis, VREF, Other Psych: Yes: Bipolar Musculoskeletal: No: Bursitis, Chronic low back pain, Hemiparesis, Hemiplegia, Osteoarthritis, Paraplegia, Other Rheumatology: No: Fibromyalgia, Gout, Lupus, Rheumatoid Arthritis, Sarcoidosis, Vasculitis, Other Endocrine: No: Josué's Disease, Bishnu's Disease, Diabetes Insipidus, Diabetes Mellitus, Hyperparathyroidism, Hyperthyroidism, Hypothyroidism, Osteopenia, SIADH, Other Dermatology: Yes: Other (pruritus feet) - Past Surgical History Past Surgical History: No: None, AAA Repair, AICD, Amputation, Appendectomy, Arthrosocopy, AV Fistula/Graft, Bariatric Surgery, Breast Biopsy, Bypass, CABG, Carotid Endarterectomy, Cataract Removal, Cholecystectomy, Colectomy, Colonoscopy, Colostomy, Craniotomy, , Cystectomy, Hernia Repair, Hysterectomy, Ileal Conduit, Ileosotomy, Joint Replacement, Kidney Transplant, Laminectomy, Liver Transplant, Mastectomy, Nephrectomy, Oopherectomy, Orchiectomy, Permanent Pacemaker, Prostatectomy, Splenectomy, Stent, Thoracotomy , TURP, Tonsillectomy, Tubal Ligation, Upper Endoscopy, Valve Replacement, Vasectomy, Vein Stripping/Ligation - Alcohol/Substance Use Hx Alcohol Use: No - Smoking History Smoking history: Never smoked Have you smoked in the past 12 months: No Home Medications - Allergies Allergies/Adverse Reactions: Allergies Allergy/AdvReac Type Severity Reaction Status Date / Time nickel Allergy Verified 09/22/16 16:18 Penicillins Allergy Verified 09/22/16 16:18 - Home Medications Home Medications: Ambulatory Orders Bupropion HCl [Bupropion Xl] 300 mg PO DAILY 09/22/16 Escitalopram Oxalate [Lexapro -] 20 mg PO DAILY 09/22/16 Hydralazine HCl 10 mg PO BID 09/22/16 Risperidone 4 mg PO HS 09/22/16 Topiramate 50 mg PO BID 09/22/16 Zolpidem Tartrate [Ambien] 10 mg PO DAILY 09/22/16 Review of Systems - Review of Systems Constitutional: reports: Malaise, Weakness Eyes: reports: No Symptoms HENT: reports: No Symptoms Neck: reports: No Symptoms Cardiovascular: reports: Shortness of Breath Gastrointestinal: reports: Abdominal Pain Genitourinary: reports: Frequency Breasts: reports: No Symptoms Reported Musculoskeletal: reports: No Symptoms Integumentary: reports: No Symptoms Neurological: reports: No Symptoms Endocrine: reports: No Symptoms Hematology/Lymphatic: reports: No Symptoms Physical Exam-NURSE PLASTICS Vital Signs: Vital Signs Temperature 98.6 F 09/24/16 10:00 Pulse Rate 98 H 09/24/16 10:00 Respiratory Rate 18 09/24/16 10:00 Blood Pressure 131/87 09/24/16 10:00 O2 Sat by Pulse Oximetry (%) 100 09/24/16 09:00 Gastrointestinal: Yes: WNL, Normal Bowel Sounds, Soft Renal/: Yes: WNL Pelvis: Yes: WNL External Genitalia: Yes: Normal Vaginal Exam: Yes: Bleeding (light dark old blood) Cervix: Yes: Normal Uterus: Yes: Enlarged, Firm, Lumpy, Tender Adnexa: Not Palpable: Left Edema: No Wound/Incision: Yes: Excoriated Psychiatric: Yes: WNL Labs: CBC, BMP 09/24/16 05:35 Problem List - Problems (1) Menometrorrhagia Code(s): N92.1 - EXCESSIVE AND FREQUENT MENSTRUATION WITH IRREGULAR CYCLE (2) Leiomyoma of body of uterus Code(s): D25.9 - LEIOMYOMA OF UTERUS, UNSPECIFIED Qualifiers: Uterine leiomyoma location: unspecified location Qualified Code(s): D25.9 - Leiomyoma of uterus, unspecified (3) Anemia, iron deficiency Code(s): D50.9 - IRON DEFICIENCY ANEMIA, UNSPECIFIED Qualifiers: Iron deficiency anemia type: chronic blood loss Qualified Code(s): D50.0 - Iron deficiency anemia secondary to blood loss (chronic) Assessment/Plan tvs, blood transfusion , iron transfusion, , revaluate as out patient for treatment of fibroids , possible hysterectomy. advised to make apt for pap,and evaluation and treatment for menometrorrhagia patient will make apt in office for follow up, importance discussed
[2016-09-24] MEDS ORDERED: ACETAMINOPHEN 325 MG TABLET (FP) ONE ×2 (14:02→21:35)
[2016-09-24] MEDS: SODIUM CHLORIDE 1,000 ML IV SCH (14:27)
--- NOTE | 2016-09-24 16:10 | PN ---
Teaching Attending Note Name of Resident: Esthela Cervantes ATTENDING PHYSICIAN STATEMENT I saw and evaluated the patient. I reviewed the resident's note and discussed the case with the resident. I agree with the resident's findings and plan as documented. Patient is doing better. no further lightheadedness , no further symptoms. Vital Signs Temperature 98.6 F 09/24/16 14:00 Pulse Rate 89 09/24/16 14:00 Respiratory Rate 16 09/24/16 14:00 Blood Pressure 114/81 09/24/16 14:00 O2 Sat by Pulse Oximetry (%) 100 09/24/16 09:00 CBCD WBC 7.8 K/mm3 (4.0-10.0) D 09/24/16 05:35 RBC 3.13 M/mm3 (3.60-5.2) L 09/24/16 05:35 Hgb 6.5 GM/dL (10.7-15.3) L* 09/24/16 05:35 Hct 21.3 % (32.4-45.2) L 09/24/16 05:35 MCV 68.1 fl (80-96) L 09/24/16 05:35 MCHC 30.6 g/dl (32.0-36.0) L 09/24/16 05:35 RDW 17.2 % (11.6-15.6) H 09/24/16 05:35 Plt Count 330 K/MM3 (134-434) 09/24/16 05:35 MPV 9.1 fl (7.5-11.1) 09/24/16 05:35 CMP Sodium 141 mmol/L (136-145) 09/23/16 05:35 Potassium 4.0 mmol/L (3.5-5.1) 09/23/16 05:35 Chloride 110 mmol/L (98-107) H 09/23/16 05:35 Carbon Dioxide 22 mmol/L (21-32) 09/23/16 05:35 Anion Gap 9 (8-16) 09/23/16 05:35 BUN 13 mg/dL (7-18) D 09/23/16 05:35 Creatinine 0.8 mg/dL (0.55-1.02) D 09/23/16 05:35 Creat Clearance w eGFR 48.36 (>60) 09/22/16 16:48 Random Glucose 95 mg/dL (74-106) 09/23/16 05:35 Calcium 8.4 mg/dL (8.5-10.1) L 09/23/16 05:35 Total Bilirubin 0.4 mg/dL (0.2-1.0) D 09/22/16 16:48 AST 16 U/L (15-37) D 09/22/16 16:48 ALT 17 U/L (12-78) D 09/22/16 16:48 Alkaline Phosphatase 63 U/L (45-117) D 09/22/16 16:48 Total Protein 6.5 g/dl (6.4-8.2) 09/22/16 16:48 Albumin 3.3 g/dl (3.4-5.0) L 09/22/16 16:48 CARDIAC ENZYMES Creatine Kinase 92 IU/L (26-192) 09/23/16 05:35 Troponin I < 0.02 ng/ml (0.00-0.05) 09/23/16 05:35 Current Medications Generic Name Dose Route Start Last Admin Trade Name Freq PRN Reason Stop Dose Admin Docusate Sodium 100 mg 09/23/16 22:00 09/24/16 14:11 Colace - PO Not Given TID [facility] Ferrous Sulfate 325 mg 09/23/16 18:30 09/24/16 12:53 Feosol - PO Not Given TIDCM [facility] Levofloxacin 100 mls @ 100 mls/hr 09/23/16 10:00 09/24/16 09:27 Levaquin 500 Mg Premixed Ivpb - IVPB 100 mls/hr DAILY [facility] Administration Sodium Chloride 1,000 mls @ 75 mls/hr 09/24/16 13:33 09/24/16 14:27 Normal Saline - IV 75 mls/hr ASDIR JOSÉ MIGUEL Administration Home Medications Medication Instructions Recorded Bupropion HCl [Bupropion Xl] 300 mg PO DAILY 09/22/16 Escitalopram Oxalate [Lexapro -] 20 mg PO DAILY 09/22/16 Hydralazine HCl 10 mg PO BID 09/22/16 Risperidone 4 mg PO HS 09/22/16 Topiramate 50 mg PO BID 09/22/16 Zolpidem Tartrate [Ambien] 10 mg PO DAILY 09/22/16 Urine Test Results Urine Color Red 09/22/16 16:48 Urine Appearance Sl cloudy 09/22/16 16:48 Urine pH 7.0 (5.0-8.0) 09/22/16 16:48 Ur Specific [place] 1.020 (1.001-1.035) 09/22/16 16:48 Urine Protein 3+ (NEGATIVE) H 09/22/16 16:48 Urine Glucose (UA) Negative (NEGATIVE) 09/22/16 16:48 Urine Ketones Trace (NEGATIVE) H 09/22/16 16:48 Urine Blood 3+ (NEGATIVE) H 09/22/16 16:48 Urine Nitrite Positive (NEGATIVE) 09/22/16 16:48 Urine Bilirubin Negative (NEGATIVE) 09/22/16 16:48 Ur Leukocyte Esterase 1+ (NEGATIVE) H 09/22/16 16:48 Urine RBC 1000 /hpf (0-3) 09/22/16 16:48 Urine WBC Small /hpf (3-5) 09/22/16 16:48 Ur Epithelial Cells Rare /hpf (FEW) 09/22/16 16:48 Urine Bacteria Moderate /hpf (NONE SEEN) 09/22/16 16:48 Urine Mucus 3+ 09/22/16 16:48 ASSESSMENT AND PLAN: This is a 46 y/o female with a PMHx of: Bipolar Depression who presents to the ED with lightheadedness, syncope and having heavy menstruation. #Acute Microcytic anemia due to heavy menstrual bleed seen by and . as per will infuse IV iron today and monitor for any symptoms if the patient feels better tomorrow, can follow up with for another Iron infusion in his office . Since patient is refusing transfusion and afraid that she will get HIv ot Hepatitis C. Growth Factor to be given 10,000 unit ordered today. Will monitor CBC # s/p syncope due to acute severe anemia continue to monitor the patient. Cardiac Enzymes neg x2 # Heavy mentrual bleed will get OBGYN to be consulted # Acute UTI will continue with Levaquin IV day #2 ;last dose in am ; since patient is allergic to PCN # CHIVO on IVF improved 1.2-->0.8Cr. # Bipolar Depression continue home meds DVT Prophylaxis: OOB, SCDs, Hold ACs secondary to Anemia
[2016-09-24] MEDS ORDERED: EPOETIN ALFA 10,000 UNIT/1 ML VIAL SQ ONE (17:00)
--- NOTE | 2016-09-24 18:52 | PN ---
Physical Exam: SUBJECTIVE: Patient seen and examined. She is feeling good today. Denies chest pain, dizziness, palpitations. She want to take iron instead of being transfused. OBJECTIVE: Vital Signs Period Temp Pulse Resp BP Sys/Koenig Pulse Ox Last 24 Hr 98.6 F-98.6 F 87-98 16-18 114-138/81-88 100-100 GENERAL: The patient is awake, alert, and fully oriented, in no acute distress. HEAD: Normal with no signs of trauma. EYES: extraocular movements intact, sclera anicteric, conjunctiva clear. No ptosis. ENT: oropharynx clear without exudates, moist mucous membranes. NECK: Trachea midline, full range of motion, supple. LUNGS: Breath sounds equal, clear to auscultation bilaterally, no wheezes, no crackles, no accessory muscle use. HEART: Regular rate and rhythm, S1, S2 without murmur, rub or gallop. ABDOMEN: Soft, tender in lower abdomen, nondistended, normoactive bowel sounds, no guarding, no rebound. EXTREMITIES: no edema. NEUROLOGICAL: Normal speech, no facial asymmetry, gait not observed. PSYCH: Normal mood, normal affect. SKIN: Warm, dry, normal turgor, no rashes or lesions noted Laboratory Results - last 24 hr 09/24/16 09/24/16 05:35 05:35 WBC 7.8 D RBC 3.13 L Hgb 6.5 L* Hct 21.3 L MCV 68.1 L MCHC 30.6 L RDW 17.2 H Plt Count 330 MPV 9.1 TSH 1.36 Active Medications Generic Name Dose Route Start Last Admin Trade Name Latrell PRN Reason Stop Dose Admin Docusate Sodium 100 mg 09/23/16 22:00 09/24/16 14:11 Colace - PO Not Given TID JOSÉ MIGUEL Ferrous Sulfate 325 mg 09/23/16 18:30 09/24/16 17:17 Feosol - PO Not Given TIDCM JOSÉ MIGUEL Levofloxacin 100 mls @ 100 mls/hr 09/23/16 10:00 09/24/16 09:27 Levaquin 500 Mg Premixed Ivpb - IVPB 100 mls/hr DAILY JOSÉ MIGUEL Administration Sodium Chloride 1,000 mls @ 75 mls/hr 09/24/16 13:33 09/24/16 14:27 Normal Saline - IV 75 mls/hr ASDIR JOSÉ MIGUEL Administration ASSESSMENT/PLAN: HEAD CT WITHOUT CONTRAST was read by Mahogany Ceja MD at 19:05 EST FINDINGS: No acute intracranial hemorrhage, midline shift or extra-axial collection. No acute territorial infarction. Sinuses and mastoid air cells are clear. No acute calvarial fracture. ASSESSMENT/PLAN: This is a 46 y/o female with a PMHx of: Bipolar Depression, BIBI. Who presents to the ED with lightheadedness, syncope. Placed in Tele Observation for Syncope , Symptomatic Anemia for further evaluation for their emergent condition. Syncope: Likely secondary to Iron deficiency anemia called Dr. Gavin, she will get Iron transfusion IV and f/u as outpatient Tele monitoring CT Brain- neg ICH, mass or lesion EKG: NSR with T wave abnormality Echo and Carotid Doppler ordered Cardiac Enzymes neg x3 BIBI: Likely secondary menorrhagia/Fibroid Baseline 8.6, today 6.5 Discussed need for a blood transfusion with patient, including risks and benefits, patient adamantly refused today again and wants to have alternative, called Hematology consultation, will get Iron IV and then weekly IV infusions as outpatient f/u OBGYN consultation, possible fibroids removal FE, TIBC, Ferritin done Will monitor CBC Ferrous Sulfate UTI +nitrate, +3 protein, +1 leukocyte esterase, mod bacteria Urine Culture-pending Will continue Levofloxacin (no cephalosporins with PCN allergy hx) Monitor vitals, CBC CHIVO Likely secondary to UTI IVF Monitor renal function Bipolar Depression The pt doesn't want to take medications for Bipolar disorder FEN PO Fluids tolerated No changes Regular Diet DVT Prophylaxis SCDs Hold ACs secondary to Anemia Code Status: Full Code Disposition: Admitted to inpatient Problem List - Problems (1) CHIVO (acute kidney injury) Code(s): N17.9 - ACUTE KIDNEY FAILURE, UNSPECIFIED (2) Anemia Code(s): D64.9 - ANEMIA, UNSPECIFIED Qualifiers: Anemia type: unspecified type Qualified Code(s): D64.9 - Anemia, unspecified (3) Lightheadedness Code(s): R42 - DIZZINESS AND GIDDINESS (4) Syncope Code(s): R55 - SYNCOPE AND COLLAPSE Qualifiers: Syncope type: unspecified Qualified Code(s): R55 - Syncope and collapse (5) UTI (urinary tract infection) Code(s): N39.0 - URINARY TRACT INFECTION, SITE NOT SPECIFIED (6) DVT prophylaxis Code(s): LUD3750 - Visit type - Emergency Visit Emergency Visit: Yes ED Registration Date: 09/23/16 Care time: The patient presented to the Emergency Department on the above date and was hospitalized for further evaluation of their emergent condition. - New Patient This patient is new to me today: No - Critical Care Critical Care patient: No - Discharge Referral Referred to [facility] Med P.C.: No
[2016-09-25] MEDS: SODIUM CHLORIDE 1,000 ML IV SCH
[2016-09-25] MEDS: DOCUSATE SODIUM 100 MG CAPSULE (FP) PO SCH (06:16)
[2016-09-25 07:38] LABS: MCHC 30.7 g/dl (32.0-36.0); MEAN CELL VOLUME 68.5 fl (80-96); MEAN PLT VOLUME 9.1 fl (7.5-11.1); PLATELET COUNT 314 K/MM3 (134-434); RDW 17.6 % (11.6-15.6); WHITE BLOOD COUNT 5.7 K/mm3 (4.0-10.0)
[2016-09-25 08:24] LABS: LDH 159 U/L (84-246)
[2016-09-25] MEDS: FERROUS SO4 325 MG TABLET (FP) PO SCH ×2 (09:00→11:12)
[2016-09-25] MEDS: LEVOFLOXACIN 500 MG IVPB 100 ML IVPB SCH (09:31)
[2016-09-25 11:16] VITALS: BP 127/101; PULSE 87
[2016-09-25 11:17] VITALS: TEMP 98.3
[2016-09-25 11:26] LABS: ANISOCYTOSIS 2+; HYPOCHROMIA 3+; MICROCYTOSIS 2+; OVALOCYTES 2+; POIKILOCYTOSIS 2+
[2016-09-25 11:27] LABS: ACANTHOCYTES 3+
--- NOTE | 2016-09-25 11:33 | PN ---
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 CBC, BMP 09/25/16 05:35 09/23/16 05:35 Last Vital Signs Temp Pulse Resp BP Pulse Ox 98.3 F 87 18 127/101 98 09/25/16 10:00 09/25/16 08:08 09/25/16 06:00 09/25/16 08:08 09/25/16 09:00 abdomen soft, non tender pelvic no vaginal bleeding sono result explained to patient ,advised hysterectomy when anemia corrected as out patint. importance follow up explained Problem List - Problems (1) Menometrorrhagia Code(s): N92.1 - EXCESSIVE AND FREQUENT MENSTRUATION WITH IRREGULAR CYCLE (2) Leiomyoma of body of uterus Code(s): D25.9 - LEIOMYOMA OF UTERUS, UNSPECIFIED Qualifiers: Uterine leiomyoma location: unspecified location Qualified Code(s): D25.9 - Leiomyoma of uterus, unspecified (3) Anemia, iron deficiency Code(s): D50.9 - IRON DEFICIENCY ANEMIA, UNSPECIFIED Qualifiers: Iron deficiency anemia type: chronic blood loss Qualified Code(s): D50.0 - Iron deficiency anemia secondary to blood loss (chronic)
--- NOTE | 2016-09-25 15:30 | PN ---
Teaching Attending Note Name of Resident: Esthela Cervantes ATTENDING PHYSICIAN STATEMENT I saw and evaluated the patient. I reviewed the resident's note and discussed the case with the resident. I agree with the resident's findings and plan as documented. SUBJECTIVE: no fever ro chills, no abd apin , bleeding has stopped. OBJECTIVE: NAD Cv : RRR Lungs : CTAb ext : no edema abd : soft, NT, ND , NL BS ASSESSMENT AND PLAN: 46 y/o lady with multiple medical problems who presented with syncope in the setting of vaginal bleed and was found to be very anemic 1- syncope : due to severe anemia . unlikely cardiac etiology of syncope orthostatic VS nl today. received IVF . 2- iron def anemia : due to hemorrhagea . iron infusion weekly refused blood transfusion again 3- menorrhagea due to fibroids: f/u with ED EDUCATIONAL AIDE as out pt 4- dc Abx as UA does not indicate UTI and pt has no Sx. dispo : home today since she is not having orthostatic hypotension
--- NOTE | 2016-09-26 18:14 | DS ---
Physical Exam: SUBJECTIVE: Patient seen and examined. She is feeling good today. She denies lightheadedness, dizziness, palpitations, chest pain. OBJECTIVE: PHYSICAL EXAM GENERAL: The patient is awake, alert, and fully oriented, in no acute distress. HEAD: Normal with no signs of trauma. EYES: PERRL, extraocular movements intact, sclera anicteric, conjunctiva clear. ENT: oropharynx clear without exudates, moist mucous membranes. NECK: Trachea midline, full range of motion, supple. LUNGS: Breath sounds equal, clear to auscultation bilaterally, no wheezes, no crackles, no accessory muscle use. HEART: Regular rate and rhythm, S1, S2 without murmur, rub or gallop. ABDOMEN: Soft, nontender, nondistended, normoactive bowel sounds, no guarding, no rebound, no hepatosplenomegaly, no masses. EXTREMITIES: no edema. NEUROLOGICAL: Normal speech, gait not observed. PSYCH: Normal mood, normal affect. SKIN: Warm, dry, normal turgor, no rashes or lesions noted. LABS HOSPITAL COURSE: Date of Admission:09/23/16 Date of Discharge: 09/26/16 Minutes to complete discharge: 50 Discharge Summary Reason For Visit: SYNCOPE,ANEMIA,LIGHTHEADEDNESS,UTI,MONORRHAGIA Current Active Problems CHIVO (acute kidney injury) (Acute) Anemia, iron deficiency (Acute) DVT prophylaxis (Acute) Lightheadedness (Acute) Syncope (Acute) UTI (urinary tract infection) (Acute) Leiomyoma of body of uterus (Chronic) Menometrorrhagia (Chronic) Hospital Course: This is a 46 y/o female with a PMHx of: Bipolar Depression, BIBI. Who presents to the ED with lightheadedness, syncope. Placed in Tele Observation for Syncope , Symptomatic Anemia. Hospital course: Syncope: secondary to Iron deficiency anemia, possibly due to fibroid, the pt refused blood transfusion. We called Hematology and she was given IV Iron and needs to get weekly IV transfusions as outpatient. CT Brain- neg ICH, mass or lesion EKG: NSR with T wave abnormality. Echo and Carotid Doppler WNL, Cardiac Enzymes neg x3, Menorrhagia: OBGY assessed the pt in the hospital and she had transvaginal US done which confirmed fibroids. FE, TIBC, Ferritin done: microcytic anemia. She was also given Iron supplements in the hospital. We recommended f/u OBGYN as outpatient. UTI: UA not confirmatory and pt didn't have complaints. Bipolar Depression:The pt doesn't want to take medications for Bipolar disorder The pt improved clinically and was discharged home. Condition: Improved - Instructions Diet, Activity, Other Instructions: Please take your medications everyday. 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 If your symptoms worsen come back to Emergency Room as soon as possible. Disposition: HOME - Home Medications Comprehensive Discharge Medication List: Ambulatory Orders Bupropion HCl [Bupropion Xl] 300 mg PO DAILY 09/22/16 Escitalopram Oxalate [Lexapro -] 20 mg PO DAILY 09/22/16 Hydralazine HCl 10 mg PO BID 09/22/16 Risperidone 4 mg PO HS 09/22/16 Topiramate 50 mg PO BID 09/22/16 Zolpidem Tartrate [Ambien] 10 mg PO DAILY 09/22/16 Ferrous Sulfate [Feosol] 325 mg PO TIDCM #90 cap 09/25/16 Problem List - Problems (1) CHIVO (acute kidney injury) Code(s): N17.9 - ACUTE KIDNEY FAILURE, UNSPECIFIED (2) Lightheadedness Code(s): R42 - DIZZINESS AND GIDDINESS (3) Syncope Code(s): R55 - SYNCOPE AND COLLAPSE Qualifiers: Qualified Code(s): R55 - Syncope and collapse (4) UTI (urinary tract infection) Code(s): N39.0 - URINARY TRACT INFECTION, SITE NOT SPECIFIED (5) DVT prophylaxis Code(s): [id number] - This patient is new to me today: No Emergency Visit: No Critical Care patient: No - Discharge Referral Referred to [facility] Med P.C.: No
[2016-10-02 14:14] LABS: Hgb A2 1.5 % (0.7-3.1)
== END 2016-09-25 13:15 | disposition home or self-care (01) | DRG 812 ==
LOC: JER 16:09 → JERBED 09-23 00:40 → J4W 09-23 03:02 → OBSVTOIN 09-23 13:37 → J4S 09-23 16:27
PROVIDERS: ADMIT Internal Medicine; ATTEND Internal Medicine
DX: D50.0 Iron deficiency anemia secondary to blood loss (chronic) (principal); N39.0 Urinary tract infection, site not specified; N17.9 Acute kidney failure, unspecified; D25.9 Leiomyoma of uterus, unspecified; F32.9 Major depressive disorder, single episode, unspecified; F31.9 Bipolar disorder, unspecified; N92.1 Excessive and frequent menstruation with irregular cycle; R55 Syncope and collapse
CPT/HCPCS: 36415; 70450-TC; 71020-TC; 76830-TC; 80048; 80053; 80061; 80307; 81003; 81015; 82550; 82607; 82728; 82746; 83021; 83036; 83540; 83550; 83615; 83718; 83721; 83735; 84100; 84443; 84484; 84703; 85025; 85027; 85044; 85660; 93005; 93010; 93306-TC; 93880-TC; 99285-25; G0008; G0378; J0885; J1756; Q2037

== ENCOUNTER 2016-12-10 05:17 | Inpatient (IN) | payer OTHER ==
[2016-12-03 19:39] VITALS: BMI 33.6
--- NOTE | 2016-12-10 09:02 | HP ---
Past Medical History - Primary Care Physician PCP:: Rikki Cisneros - Admission Chief Complaint: menometrorrhagia, pelvic pain, fibroid uterus, anemai History of Present Illness: 46 yo f with hx of menometrorrhagia , pelvic pain, fibroids uterus , anemia , receiving iron transfusion admitted for supracervical abdominal hysterectomy, and bilateral salpingectomy, risks discussed, ulternative discussed History Source: Patient Limitations to Obtaining History: No Limitations - Past Medical History Heme/Onc: Yes: Anemia. No: B12 Deficiency, Bleeding Disorder, Cancer, Current Chemotherapy, Current Radiation Therapy, Hemochromatosis, Hypercoaguable State, Myeloproliferative Synd, Sickle Cell Disease, Sickle Cell Trait, Thrombocytopenia, Other Psych: Yes: Bipolar Dermatology: Yes: Other (pruritus feet) - Past Surgical History Hx Myomectomy: No Hx Transabdominal Cerclage: No - Smoking History Smoking history: Never smoked Have you smoked in the past 12 months: No - Alcohol/Substance Use Hx Alcohol Use: No History of Substance Use: reports: None - Social History History of Recent Travel: No Home Medications - Allergies Allergies/Adverse Reactions: Allergies Allergy/AdvReac Type Severity Reaction Status Date / Time nickel Allergy Verified 12/03/16 19:28 Penicillins Allergy Verified 12/03/16 19:28 - Home Medications Home Medications: Ambulatory Orders Escitalopram Oxalate [Lexapro -] 20 mg PO DAILY 09/22/16 Topiramate 50 mg PO BID 09/22/16 Hydroxyzine HCl [Atarax -] 50 mg PO BID 12/03/16 Review of Systems - Review of Systems Constitutional: reports: Malaise, Weakness Eyes: reports: No Symptoms HENT: reports: No Symptoms Neck: reports: No Symptoms Cardiovascular: reports: Palpitations Respiratory: reports: No Symptoms Gastrointestinal: reports: Abdominal Pain Genitourinary: reports: Frequency Breasts: reports: No Symptoms Reported Musculoskeletal: reports: No Symptoms Integumentary: reports: No Symptoms Neurological: reports: No Symptoms Endocrine: reports: No Symptoms Hematology/Lymphatic: reports: No Symptoms Psychiatric: reports: Depression (bipolar disorder) 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 Vital Signs: Vital Signs Temperature 98.7 F 12/03/16 19:30 Pulse Rate 74 12/03/16 19:30 Respiratory Rate 20 12/03/16 19:30 Blood Pressure 126/82 05/16/17 19:30 O2 Sat by Pulse Oximetry (%) Constitutional: Yes: Well Nourished, No Distress, Calm Eyes: Yes: WNL, Conjunctiva Clear, EOM Intact HENT: Yes: WNL, Atraumatic, Normocephalic Neck: Yes: WNL, Supple, Trachea Midline Cardiovascular: Yes: WNL, Regular Rate and Rhythm Respiratory: Yes: WNL, Regular, CTA Bilaterally Gastrointestinal: Yes: WNL ...Rectal Exam: Yes: WNL Renal/: Yes: WNL Pelvis: Yes: WNL External Genitalia: Yes: Normal Internal Exam Deferred: No Vaginal Exam: Yes: Normal Cervix: Yes: Normal Uterus: Yes: Enlarged (multiple myomas , tender), Lumpy, Mass (multiple myomas) Breast(s): Yes: WNL Musculoskeletal: Yes: WNL Extremities: Yes: WNL Edema: No Integumentary: Yes: WNL Neurological: Yes: WNL, Alert, Oriented ...Motor Strength: WNL Psychiatric: Yes: WNL, Alert, Oriented Assessment/Plan menometrorrhagia, pelvic pain, fibroid uterus , anemia risks of procedure discussed , ulcerative and no tx explained for superacervical hysterectomy, bilateral salpingectomy, possible BSO
[2016-12-10] MEDS ORDERED: ROPIVACAINE HCL 0.5% 30ML VIAL ONE (09:31)
[2016-12-10] MEDS ORDERED: MIDAZOLAM HCL 2 MG/2 ML SINGLE DOSE VIAL ONE ×2 (09:32)
[2016-12-10] MEDS ORDERED: TOPIRAMATE 25 MG TABLET (FP) PO SCH (10:00)
[2016-12-10] MEDS ORDERED: hydrOXYzine HCL 25 MG TABLET (FP) PO PRN (10:00)
[2016-12-10] MEDS ORDERED: ESCITALOPRAM OXALATE 20 MG TABLET (FP) PO SCH (10:00)
[2016-12-10] MEDS ORDERED: PROPOFOL 20 ML ONE ×2 (10:31)
[2016-12-10] MEDS ORDERED: ROCURONIUM BROMIDE 50 MG/5 ML VIAL ONE ×2 (10:31→11:23)
[2016-12-10] MEDS ORDERED: CLINDAMYCIN PHOSPHATE 600 MG/4 ML VIAL ONE (10:38)
[2016-12-10] MEDS ORDERED: GENTAMICIN SO4 80 MG/2 ML VIAL ONE (10:55)
[2016-12-10] MEDS ORDERED: GENTAMICIN SO4 80 MG/2 ML VIAL IVPB ONE (10:57)
[2016-12-10] MEDS ORDERED: NEOSTIGMINE METHYLSULFATE 0.5 MG/ML - 10 ML MDV ONE (11:44)
[2016-12-10] MEDS ORDERED: GLYCOPYRROLATE 0.2 MG/1 ML VIAL ONE (11:44)
[2016-12-10] MEDS ORDERED: ONDANSETRON 4 MG/2 ML VIAL ONE (11:44)
[2016-12-10] MEDS ORDERED: DEXAMETHASONE SOD PHOSPHATE 4 MG/1 ML VIAL ONE (11:44)
[2016-12-10] MEDS ORDERED: SIMETHICONE 80 MG TAB.CHEW (FP) PO PRN (12:20)
[2016-12-10] MEDS ORDERED: diphenhydrAMINE HCL 25 MG CAPSULE (FP) PO PRN (12:20)
[2016-12-10] MEDS ORDERED: METHYLERGONOVINE MALEATE 0.2 MG/1 ML AMP IM PRN (12:20)
[2016-12-10] MEDS ORDERED: IBUPROFEN 600 MG TABLET (FP) PO PRN (12:20)
[2016-12-10] MEDS ORDERED: oxyCODONE HCL 5 MG TABLET PO PRN ×2 (12:20)
[2016-12-10] MEDS ORDERED: IBUPROFEN 800 MG/8 ML IJ IVPB PRN (12:20)
[2016-12-10] MEDS ORDERED: WITCH HAZEL 50% (TUCKS) 40 PAD/JAR PAD TP PRN (12:20)
[2016-12-10] MEDS ORDERED: BENZOCAINE 20% 57 GM BOTTLE TP PRN (12:20)
[2016-12-10] MEDS ORDERED: BENZOCAINE 28 GM HEMORRHOIDAL OINTMENT PR PRN (12:20)
[2016-12-10] MEDS ORDERED: FLUMAZENIL 0.5 MG/5 ML VIAL ONE (12:22)
[2016-12-10] MEDS ORDERED: NALOXONE HCL 0.4 MG/ML VIAL ONE (12:29)
[2016-12-10] MEDS ORDERED: ONDANSETRON 4 MG/2 ML VIAL IVPB PRN (12:29)
[2016-12-10] MEDS ORDERED: DEXTROSE 5%-LACTATED RINGERS 1,000 ML IV SCH (12:30)
[2016-12-10] MEDS ORDERED: OXYTOCIN 20 UNITS in 0.9% NS 1,000 ML IV SCH (12:30)
[2016-12-10] MEDS ORDERED: HYDROmorphone HCL CARPU-JECT 2 MG/1 ML DISP.SYRIN IVPUSH ONE ×4 (12:35→14:00)
[2016-12-10] MEDS ORDERED: HYDROmorphone HCL CARPU-JECT 2 MG/1 ML DISP.SYRIN ONE (12:41)
[2016-12-10] MEDS ORDERED: ACETAMINOPHEN INJECTION 100 ML IVPB ONE (12:54)
[2016-12-10] MEDS ORDERED: IBUPROFEN 800 MG/8 ML IJ IVPB ONE ×2 (12:54→13:19)
[2016-12-10] MEDS ORDERED: HYDROmorphone HCL CARPU-JECT 1 MG/1 ML DISP.SYRIN IVPUSH PRN (12:55)
[2016-12-10] MEDS ORDERED: ACETAMINOPHEN 1000 MG/100 ML VIAL (NON FORMULARY) IVPB PRN (12:56)
[2016-12-10] MEDS ORDERED: ACETAMINOPHEN 1000 MG/100 ML VIAL (NON FORMULARY) IVPB ONE (13:00)
[2016-12-10] MEDS ORDERED: DEXAMETHASONE SOD PHOSPHATE 4 MG/1 ML VIAL IVPUSH PRN (13:56)
[2016-12-10] MEDS ORDERED: HYDROmorphone *PCA* 10MG/50ML DISP.SYRIN PCA SCH (14:00)
[2016-12-10] MEDS ORDERED: HYDROmorphone *PCA* 10MG/50ML DISP.SYRIN PCA ONE (14:15)
[2016-12-10] MEDS: CLINDAMYCIN 600MG PREMIX IVPB 50 ML IVPB SCH (18:10)
[2016-12-11] MEDS: CLINDAMYCIN 600MG PREMIX IVPB 50 ML IVPB SCH ×2 (01:37→09:15)
[2016-12-11] MEDS: IBUPROFEN 800 MG/8 ML IJ IVPB PRN ×2 (07:23→15:35)
[2016-12-11] MEDS ORDERED: FUROSEMIDE 40 MG/4 ML INJECTABLE VIAL IVPUSH STA (08:44)
--- NOTE | 2016-12-11 09:42 | PN ---
Progress Note (short form) - Note Progress Note: pod 1 c/o of wheezing , no dyspnia, o2 sat.100 abdomen soft, no distension, no cva. lungs scattered rales no vaginal bleeding incision dry, clean no calf tenderness no edema plan CXR, lasix ,ambulate, incentive spirometer advance diet
[2016-12-11] MEDS ORDERED: LEVOFLOXACIN 250 MG IVPB 50 ML IVPB SCH (10:00)
[2016-12-11] MEDS ORDERED: ENOXAPARIN NA (PORCINE) 40 MG/0.4 ML DISP.SYRIN SQ SCH (10:00)
--- NOTE | 2016-12-11 10:12 | PN ---
Progress Note (short form) - Note Progress Note: Anesthesia POD#1 S/P JOSSE/BSO under GA and Duramorph NATURAL GAS INSPECTOR AAox3 ,pain is poorly controlled with the NATURAL GAS INSPECTOR.NSAIDS are helping her. Using incentive spirometry but breathing is still difficult. some basal crackles heard. NO rhonchi. taking clears.VSS A/P D/C Dilaudid NATURAL GAS INSPECTOR.Lasix 20 mg ordered for suspected negative pressure pulmonary edema. CXR ordered. Valeria Cox MD.
[2016-12-11] MEDS ORDERED: PCA PUMP KEY 1 EACH EACH ONE (10:47)
[2016-12-11] MEDS ORDERED: ACETAMINOPHEN 325 MG TABLET (FP) ONE (12:14)
[2016-12-11] MEDS ORDERED: ACETAMINOPHEN 325 MG TABLET (FP) PO PRN (12:14)
[2016-12-11] MEDS: oxyCODONE HCL 5 MG TABLET PO PRN ×2 (12:17→20:41)
[2016-12-11] MEDS: ACETAMINOPHEN 325 MG TABLET (FP) PO PRN ×2 (12:18→20:40)
[2016-12-11] MEDS ORDERED: BISACODYL 10 MG SUPP.RECT PR PRN (12:21)
--- NOTE | 2016-12-11 16:35 | OP ---
DATE OF OPERATION: 12/10/2016 PROCEDURE: Total abdominal hysterectomy and bilateral salpingo-oophorectomy. PREOPERATIVE DIAGNOSIS: 1. Pelvic pain. 2. Menometrorrhagia. 3. Fibroid uterus. 4. Anemia. POSTOPERATIVE DIAGNOSIS: 1. Pelvic pain. 2. Menometrorrhagia. 3. Fibroid uterus. 4. Anemia. SURGEON: Rikki Cisneros MD STOCKHOLDER: Savanah Gonzales MD ESTIMATED BLOOD LOSS: 160 mL ANESTHESIA: General OPERATION: The patient was taken to the operating room. After adequate general anesthesia, her abdomen and perineum were prepped and draped. A Pfannenstiel abdominal skin incision was made. Abdominal wall was cut layer by layer until peritoneum was exposed and excised. Upon entering the abdominal cavity, the upper abdomen was checked and was normal. Bowels were packed away. There were some peritoneal adhesions in the posterior cul-de-sac which were lysed with sharp Metzenbaum dissection. The uterus was enlarged with multiple myomas. Then, the uterus was delivered to the surface and then both were identified and then grasped with a bipolar LigaSure cautery, cauterized and cut. Then, the anterior lip of the broad ligament was opened and the bladder was pushed down. Then, a hole was made in the round ligament. The infundibulopelvic ligament was identified bilaterally and then grasped with a Vishnu clamp, cut and the clamp replaced with 0 Vicryl ties bilaterally. Then the bladder was further pushed down. The uterine artery was identified bilaterally, clamped with a Vishnu clamp, cut and the clamp replaced with 0 Vicryl suture bilaterally. The paracervical area was grasped with a Vishnu clamp, cut and the clamp replaced with 0 Vicryl suture bilaterally. Then, the cervicovaginal junction was reached and with the Vishnu clamp, the angles were clamped with the Vishnu clamp, cut, and the clamp replaced with 0 Vicryl suture bilaterally. Then, the vaqinal cuff was closed with interrupted suture of 0 Vicryl. No active bleeding was seen. The pelvic cavity was irrigated several times. All the lap, sponge and instrument counts were correct. The peritoneum was closed with 0 Biosyn continuous suture. Muscles were brought together with interrupted sutures of 0 Biosyn. Fascia was closed with 0 Biosyn continuous suture, subcutaneous fat with interrupted suture of 0 Biosyn, and skin was closed with 4-0 Biosyn subcuticular suture. Patient tolerated the procedure well and left the OR in good condition. Tay [id number]
[2016-12-11] MEDS: LACTATED RINGERS SOLUTION 1,000 ML IV SCH ×2 (19:36→19:37)
[2016-12-11] MEDS: ELECTROLYTE-148 SOLN 1,000 ML IV SCH (19:36)
[2016-12-11] MEDS: DEXTROSE 5%-LACTATED RINGERS 1,000 ML IV SCH (19:37)
[2016-12-11] MEDS ORDERED: hydrOXYzine PAMOATE 50 MG CAPSULE (FP) PO SCH ×2 (22:15)
[2016-12-11] MEDS ORDERED: hydrOXYzine PAMOATE 25 MG CAPSULE (FP) PO SCH (22:30)
[2016-12-11] MEDS: hydrOXYzine HCL 25 MG TABLET (FP) PO SCH (22:44)
[2016-12-11] MEDS: TOPIRAMATE 25 MG TABLET (FP) PO SCH (22:45)
[2016-12-12 09:15] LABS: BASOPHIL 0.6 % (0-2.0); EOSINOPHIL 1.1 % (0-4.5); MCH 26.4 pg (25.7-33.7); MCHC 32.4 g/dl (32.0-36.0); MEAN CELL VOLUME 81.5 fl (80-96); MEAN PLT VOLUME 9.5 fl (7.5-11.1); NEUTROPHILS 73.7 % (42.8-82.8); PLATELET COUNT 240 K/MM3 (134-434); RDW 26.2 % (11.6-15.6); WHITE BLOOD COUNT 7.2 K/mm3 (4.0-10.0)
[2016-12-12] MEDS: ESCITALOPRAM OXALATE 20 MG TABLET (FP) PO SCH (09:23)
[2016-12-12] MEDS: TOPIRAMATE 25 MG TABLET (FP) PO SCH ×2 (09:23→21:09)
[2016-12-12] MEDS: oxyCODONE HCL 5 MG TABLET PO PRN ×3 (09:24→20:07)
[2016-12-12] MEDS: IBUPROFEN 600 MG TABLET (FP) PO PRN ×2 (09:24→15:57)
[2016-12-12] MEDS: hydrOXYzine HCL 25 MG TABLET (FP) PO SCH ×2 (09:41→21:10)
[2016-12-12 10:23] LABS: ANISOCYTOSIS 3+; FRAGMENTED CELL 1+; HYPOCHROMIA 2+; POIKILOCYTOSIS 2+
[2016-12-12 10:24] LABS: OVALOCYTES 2+; TARGET CELLS FEW
--- NOTE | 2016-12-12 14:45 | PATH ---
Surgical Pathology Report Patient Name: SAMUEL HALLMAN [facility]. Rec. #: [id number] /Age/Gender: 1970 (Age: 46) / F Account: [id number] Location: [facility] OBS/ARC CUTTER PLASMA ARC Taken: 12/10/2016 Received: 12/10/2016 Reported: 12/12/2016 Physicians: Rikki Cisneros M.D. Specimen(s) Received UTERUS, BILATERAL FALLOPIAN TUBES, OVARIES & CERVIX Clinical History Menorrhagia, fibroid uterus Final Diagnosis UTERUS, CERVIX, BILATERAL FALLOPIAN TUBES AND OVARIES, ABDOMINAL HYSTERECTOMY, BILATERAL SALPINGO-OOPHORECTOMY: CERVIX: MILD CHRONIC CERVICITIS. ENDOMETRIUM: PREDOMINANTLY INACTIVE WITH EXTENSIVE STROMAL BREAKDOWN CHANGE. MYOMETRIUM: ADENOMYOSIS, LEIOMYOMATA WITH FOCAL DEGENERATIVE CHANGES (LARGEST 4.7 CM). UTERINE SEROSA: WITHOUT SIGNIFICANT PATHOLOGIC CHANGES. LEFT FALLOPIAN TUBE: WITHOUT SIGNIFICANT PATHOLOGIC CHANGES. LEFT OVARY: CYSTIC FOLLICLES, SURFACE INCLUSION CYSTS. RIGHT FALLOPIAN TUBE: WITHOUT SIGNIFICANT PATHOLOGIC CHANGES. RIGHT OVARY: SMALL ADENOFIBROMA. Electronically Signed Adolfo Godinez M.D. Gross Description Received in formalin labeled "uterus, bilateral fallopian tubes, ovaries" is a 523 g uterus with an attached cervix and bilateral attached adnexa. The specimen measures 13.4 cm from superior to inferior, 9.3 cm from left to right and 9.0 cm from anterior to posterior. The serosa is guzman-parham with multiple bulging subserosal nodules. The attached cervix measures 3.7 cm in length and averages 2.3 cm in diameter. The ectocervix is guzman, smooth and glistening. The endocervix is unremarkable. The endometrial cavity measures 7 cm in length and 2 cm from cornu to cornu. There is a 1.5 cm in greatest dimension submucosal nodule. The remaining endometrium is guzman and averages 0.1 cm in thickness. The myometrium displays abundant intramural nodules, measuring up to 4.7 cm in greatest dimension. One of the intramural nodules appears softened. The remaining subserosal, submucosal and intramural nodules are guzman, firm to rubbery and display whorled architecture. The remaining myometrium is guzman-pink and averages 4.5 cm in thickness. The left fimbriated fallopian tube appears previously ligated and measures 1.5 cm in length. The outer surface is reynolds-purple. Sectioning reveals an unremarkable lumen. The left ovary measures 2.8 x 2.3 x 0.9 cm. The outer surface is guzman-yellow, convoluted and smooth. Sectioning reveals a focal 0.7 cm hemorrhagic cyst as well as a corpus luteum. The remaining ovarian parenchyma is unremarkable. The right fimbriated fallopian tube appears previously ligated and measures 2.3 cm in length. The outer surface is reynolds-purple. Sectioning reveals an unremarkable lumen. The right ovary measures 2.8 x 1.8 x 1.0 cm. The outer surface is guzman-yellow, convoluted and smooth. Sectioning reveals unremarkable ovarian parenchyma. Home Care Nurse sections are submitted in 18 cassettes as follows: 1-anterior cervix; 2-posterior cervix; 9-4-cieqsfjw endomyometrium; 8-6-bzwcewvyx endomyometrium; 8-2-zhyhitoagq nodules; 9-submucosal nodule; 10-necrotic intramural nodule; 11-largest intramural nodule; 12-additional intramural nodules; 13-left fallopian tube fimbria; 14-entirely submitted cross sections of left fallopian tube; 15-left ovary; 16-right fallopian tube fimbria; 17-cross sections of right fallopian tube; 18-right ovary. 12/11/201612/11/2016
[2016-12-12] MEDS: ACETAMINOPHEN 325 MG TABLET (FP) PO PRN (20:08)
[2016-12-12] MEDS ORDERED: SENNOSIDES/DOCUSATE COMBO (SENNA PLUS) TABLET (UD) PO PRN (22:00)
--- NOTE | 2016-12-12 22:52 | PN ---
Progress Note (short form) - Note Progress Note: pod 2 vert anxious, not passing gas CBC, BMP 12/12/16 08:00 Last Vital Signs Temp Pulse Resp BP Pulse Ox 98.4 F 76 18 109/69 98 12/12/16 21:00 12/12/16 21:00 12/12/16 21:00 12/12/16 21:00 12/12/16 20:56 abdomen soft, no distension, BS, hypoactive, no cva, incision dry, clean no vaginal bleeding no calf tenderness impression r/o illius , plan dulcolax prn, ambulate, revaluate 1n 12 hrs
[2016-12-13] MEDS: oxyCODONE HCL 5 MG TABLET PO PRN (06:16)
[2016-12-13] MEDS: ACETAMINOPHEN 325 MG TABLET (FP) PO PRN (06:17)
[2016-12-13] MEDS: ESCITALOPRAM OXALATE 20 MG TABLET (FP) PO SCH (09:36)
[2016-12-13] MEDS: hydrOXYzine HCL 25 MG TABLET (FP) PO SCH (09:36)
[2016-12-13 11:26] VITALS: BP 130/79; PULSE 80; TEMP 98
--- NOTE | 2016-12-19 19:37 | DS ---
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: Vital Signs Temperature 98 F 12/13/16 10:00 Pulse Rate 80 12/13/16 10:00 Respiratory Rate 20 12/13/16 10:00 Blood Pressure 130/79 12/13/16 10:00 O2 Sat by Pulse Oximetry (%) 98 12/12/16 20:56 Constitutional: Yes: Well Nourished, No Distress, Calm Eyes: Yes: WNL, Conjunctiva Clear, EOM Intact HENT: Yes: WNL, Atraumatic, Normocephalic Neck: Yes: WNL, Supple, Trachea Midline Cardiovascular: Yes: WNL, Regular Rate and Rhythm Respiratory: Yes: WNL, Regular, CTA Bilaterally Gastrointestinal: Yes: WNL ...Rectal Exam: Yes: WNL Renal/: Yes: WNL External Genitalia: Yes: Normal Breast(s): Yes: WNL Musculoskeletal: Yes: WNL Extremities: Yes: WNL Edema: No Integumentary: Yes: WNL Wound/Incision: Yes: Clean/Dry, Well Approximated, Sutures Intact Neurological: Yes: WNL, Alert, Oriented ...Motor Strength: WNL Psychiatric: Yes: WNL, Alert, Oriented Labs: CBC, BMP 12/12/16 08:00 Discharge Summary Reason For Visit: MENOMETRORRHAGIA,FIBROIDS UTERUS Current Active Problems CHIVO (acute kidney injury) (Acute) Anemia, iron deficiency (Acute) DVT prophylaxis (Acute) Lightheadedness (Acute) Syncope (Acute) UTI (urinary tract infection) (Acute) Leiomyoma of body of uterus (Chronic) Menometrorrhagia (Chronic) Procedures: Principal: bri, BSO Hospital Course: unevenful Condition: Unchanged/Unknown - Instructions Diet, Activity, Other Instructions: regular diet, follow up office 1 week, if fever, pain call MD Referrals: Rikki Cisneros MD [Staff Physician] - Disposition: HOME - Home Medications Comprehensive Discharge Medication List: Ambulatory Orders Escitalopram Oxalate [Lexapro -] 20 mg PO DAILY 09/22/16 Topiramate 50 mg PO BID 09/22/16 Hydroxyzine HCl [Atarax -] 50 mg PO BID 12/03/16 Ibuprofen [Motrin -] 600 mg PO QID #28 tablet 12/12/16 Oxycodone HCl/Acetaminophen [Percocet 5-325 mg Tablet] 1 tab PO Q6H #20 tablet MDD 4 12/13/16
== END 2016-12-13 10:15 | disposition home or self-care (01) | DRG 743 ==
LOC: JSAMEDAYSX 05:17 → J3W 15:57
PROVIDERS: ADMIT Obstetrics & Gynecology; ATTEND Obstetrics & Gynecology
PROC: 0UTC0ZZ Resection of Cervix, Open Approach (ICD-10-PCS; 2016-12-10)
PROC: 0UT70ZZ Resection of Bilateral Fallopian Tubes, Open Approach (ICD-10-PCS; 2016-12-10)
PROC: 0UT20ZZ Resection of Bilateral Ovaries, Open Approach (ICD-10-PCS; 2016-12-10)
PROC: 0UT90ZZ Resection of Uterus, Open Approach (ICD-10-PCS; principal; 2016-12-10 10:00)
DX: D25.9 Leiomyoma of uterus, unspecified (principal); N92.1 Excessive and frequent menstruation with irregular cycle; R10.2 Pelvic and perineal pain; D64.9 Anemia, unspecified; N72 Inflammatory disease of cervix uteri; N80.0 Endometriosis of uterus; N83.02 Follicular cyst of left ovary
CPT/HCPCS: 36415; 71010-TC; 84703; 85025; 88307-TC; 94010; 94760

== ENCOUNTER 2019-06-11 06:20 | Emergency (ER) | payer OTHER ==
[2019-06-11 06:57] VITALS: BP 134/99; PULSE 88; TEMP 97.7; BMI 31.8
[2019-06-11] MEDS ORDERED: MAG HYDROX/AL HYDROX/SIMETH 30 ML UNIT-DOSE CUP PO ONE (07:25)
[2019-06-11] MEDS ORDERED: FAMOTIDINE 20 MG TABLET PO ONE (07:26)
[2019-06-11] MEDS ORDERED: SODIUM CHLORIDE 1,000 ML IV STA (07:32)
--- NOTE | 2019-06-11 07:38 | PDOC ---
Attending Attestation - Resident Resident Name: Tino Peace - ED Attending Attestation I have performed the following: I have examined & evaluated the patient, The case was reviewed & discussed with the resident, I agree w/resident's findings & plan, Exceptions are as noted - HPI HPI: 06/11/19 15:32 49 years old with past medical history significant for anxiety depression hysterectomy presents with 2-week history of epigastric pain and one episode of vomiting last night with some streaky blood no additional episodes of hematemesis no dark or bloody stools normal bowel movements vomiting was brief intermittent yesterday and has since resolved patient still has some epigastric discomfort mild to moderate persistent constant associated with nausea no chest pain or shortness of breath no back pain - Physicial Exam PE: 06/11/19 15:32 Vitals: Triage Vital signs reviewed General Appearance: No acute distress, well nourished well developed, Head: Atraumatic, Cardiac: Regular rate and rhythym, no murmurs, no rubs, no gallops, Lungs: Clear to auscultation bilateral, good air movement bilaterally, Abdomen: Soft, non distended, normal bowel sounds, non tender to palpation Extremities: Full range of motion to all extremities, no cyanosis, clubbing, or edema Skin: Warm and dry, no rashes or lesions, no rash, no petechiae Psych: Normal mood, normal affect - Medical Decision Making 06/11/19 15:32 Well-appearing no apparent distress patient observed in the emergency department for 4 hours. No additional episodes of vomiting. Status post GI cocktail she feels much better her laboratory analysis was within normal limits her repeat abdominal exam was benign history examination most consistent with dyspepsia she has an appointment with her rv servicer next week Patient return to the ED for any severe worsening symptoms any recurrent episodes or for any concerns
[2019-06-11] MEDS ORDERED: ONDANSETRON 4 MG/2 ML VIAL IVPUSH ONE (07:41)
--- NOTE | 2019-06-11 07:54 | PDOC ---
History of Present Illness - General Chief Complaint: Pain, Acute Stated Complaint: VOMITING AND ABDOMINAL PAIN Time Seen by Provider: 06/11/19 07:11 History Source: Patient Exam Limitations: No Limitations - History of Present Illness Initial Comments: 06/11/19 07:45 49 yo female pmh anxiety and depression s/p hysterectomy presents to the ED with 2 weeks of epigastric pain with radiation to the LLQ and 1 episode last night of bloody vomiting. Abdominal pain is described as a constant burning with no change in quality or intensity over the last 2 weeks, made worse right after meals. Pt states normal BM occur once every 5 days and states there has been no changes in urinary or bowel habits. Pt saw her PCP 1 week ago, thought to be constipation and given linzess and has a colonoscopy scheduled for 2018. Pt admits to chills and headaches over the last 2 days. Denies recent travel, sick contacts, other URI symptoms, CP, SOB back pain. Past History - Past Medical History Allergies/Adverse Reactions: Allergies Allergy/AdvReac Type Severity Reaction Status Date / Time nickel Allergy Verified 06/11/19 06:50 Penicillins Allergy Verified 06/11/19 06:50 Home Medications: Ambulatory Orders Escitalopram Oxalate [Lexapro -] 20 mg PO DAILY 09/22/16 Topiramate 50 mg PO BID 09/22/16 hydrOXYzine HCL [Atarax -] 50 mg PO BID 12/03/16 Ibuprofen [Motrin -] 600 mg PO QID #28 tablet 12/12/16 Oxycodone HCl/Acetaminophen [Percocet 5-325 mg Tablet] 1 tab PO Q6H #20 tablet MDD 4 12/13/16 Omeprazole 20 mg PO DAILY #30 tablet. 06/11/19 Ondansetron [Zofran *Odt*] 4 mg GT BID 4 Days #8 tab.rapdis 06/11/19 Anemia: Yes Asthma: No Cancer: No Cardiac Disorders: No CVA: No COPD: No CHF: No Dementia: No Diabetes: No GI Disorders: No Disorders: No HTN: No Hypercholesterolemia: No Liver Disease: No Psychiatric Problems: Yes (depression) Seizures: No Thyroid Disease: No - Surgical History Abdominal Surgery: No Appendectomy: No Cardiac Surgery: No Cholecystectomy: Yes Lung Surgery: No Neurologic Surgery: No Orthopedic Surgery: No - Immunization History Immunization Up to Date: Yes - Psycho Social/Smoking Cessation Hx Smoking History: Never smoked Have you smoked in the past 12 months: No Information on smoking cessation initiated: No Hx Alcohol Use: No Drug/Substance Use Hx: No Substance Use Type: None Hx Substance Use Treatment: No Review of Systems - Review of Systems Constitutional: Yes: Chills. No: Fever Respiratory: No: Shortness of Breath Cardiac (ROS): No: Chest Pain ABD/GI: Yes: Nausea, Vomiting, Other (epigastric burning). No: Constipated, Diarrhea, Tarry Stools : No: Burning, Dysuria, Frequency, Flank Pain, Hematuria Musculoskeletal: No: Back Pain Integumentary: No: Change in Color Neurological: Yes: Headache. No: Numbness, Paresthesia, Weakness *Physical Exam - Vital Signs Last Vital Signs Temp Pulse Resp BP Pulse Ox 97.7 F 88 20 134/99 100 06/11/19 06:51 06/11/19 06:51 06/11/19 06:51 06/11/19 06:51 06/11/19 06:51 - Physical Exam General Appearance: Yes: Nourished, Appropriately Dressed. No: Apparent Distress HEENT: positive: EOMI Neck: positive: Supple. negative: Carotid bruit Respiratory/Chest: positive: Lungs Clear, Normal Breath Sounds. negative: Respiratory Distress, Accessory Muscle Use, Crackles, Rales, Rhonchi, Stridor, Wheezing Cardiovascular: positive: Regular Rhythm, Regular Rate, S1, S2. negative: Edema , JVD, Murmur Vascular Pulses: Dorsalis-Pedis (R): 4+, Doralis-Pedis (L): 4+ Gastrointestinal/Abdominal: positive: Flat, Soft, Tenderness (epigastric), Other (neg murphys, neg rovsings ). negative: Pulsatile Mass, Distended, Guarding, Rebound Musculoskeletal: negative: CVA Tenderness Extremity: positive: Normal Capillary Refill, Normal Inspection, Normal Range of Motion Integumentary: positive: Normal Color, Dry, Warm Neurologic: positive: Fully Oriented, Alert, Normal Mood/Affect, Normal Response , Motor Strength 5/5 ED Treatment Course - LABORATORY CBC & Chemistry Diagram: 06/11/19 08:00 06/11/19 08:00 Medical Decision Making - Medical Decision Making 06/11/19 07:59 49 yo female pmh anxiety and depression s/p hysterectomy presents to the ED with 2 weeks of epigastric pain with radiation to the LLQ and 1 episode last night of bloody vomiting. Abdominal pain is described as a constant burning with no change in quality or intensity over the last 2 weeks, made worse right after meals. Pt states normal BM occur once every 5 days and states there has been no changes in urinary or bowel habits. Pt saw her PCP 1 week ago, thought to be constipation and given linzess and has a colonoscopy scheduled for 2018. Pt admits to chills and headaches over the last 2 days. Denies recent travel, sick contacts, other URI symptoms, CP, SOB back pain. vitals WNL DDX INLT: gastric ulcer, pancreatitis, diverticulitis, gastritis, infectious pt given PO maalox with improval of symptoms Las neg for elevated WBC, normal electrolytes, normal LFTs stool occ neg Pt safe for DC home with GI appointment scheduled 06/30 and PCP f/u understands and agrees with plan Discharge - Discharge Information Problems reviewed: Yes Clinical Impression/Diagnosis: Abdominal pain, GERD (gastroesophageal reflux disease) Condition: Stable Disposition: HOME - Admission No - Additional Discharge Information Prescriptions: Omeprazole 20 mg PO DAILY #30 tablet. Ondansetron [Zofran *Odt*] 4 mg GT BID 4 Days #8 tab.rapdis - Follow up/Referral Referrals: Yonathan Fair [Primary Care Provider] - Julio Whitney MD [Staff Physician] - - Patient Discharge Instructions Additional Instructions: Please see your Primary Doctor within the next 48 hours. Make it to your GI appointment. Take the medications as prescribed for nausea and acid reflux sent to your pharmacy. Return to the ER for new or concerning symptoms including but not limited to: fevers, inability to eat or drink, non improving abdominal pain. Thank you - Post Discharge Activity
[2019-06-11] MEDS ORDERED: MAG HYDROX/AL HYDROX/SIMETH 30 ML UNIT-DOSE CUP ONE (07:56)
[2019-06-11] MEDS ORDERED: ONDANSETRON 4 MG/2 ML VIAL ONE (07:57)
[2019-06-11] MEDS ORDERED: FAMOTIDINE 20 MG/50 ML IVPB 20 MG/50 ML MG IVPB ONE (07:57)
[2019-06-11 08:42] LABS: BASO % 0.5 % (0-2.0); EOS % 1.8 % (0-4.5); HEMATOCRIT 35.8 % (32.4-45.2); LYMPH % 25.5 % (8-40); MCH 29.6 pg (25.7-33.7); MCHC 33.5 g/dl (32.0-36.0); MEAN CELL VOLUME 88.5 fl (80-96); MEAN PLT VOLUME 10.3 fl (7.5-11.1); MONO % 9.2 % (3.8-10.2); PLATELET COUNT 292 K/MM3 (134-434); RBC 4.05 M/mm3 (3.60-5.2); RDW 14.4 % (11.6-15.6); WHITE BLOOD COUNT 6.3 K/mm3 (4.0-10.0)
[2019-06-11 09:07] LABS: ALBUMIN 3.8 g/dl (3.4-5.0); BILIRUBIN,TOTAL 1.2 mg/dL (0.2-1); BLOOD UREA NITROGEN 15.3 mg/dL (7-18); CALCIUM 9.9 mg/dL (8.5-10.1); CREATININE 0.8 mg/dL (0.55-1.3); TOT PROT 6.8 g/dl (6.4-8.2)
[2019-06-11 09:18] LABS: PH,URINE 7.5 (5.0-8.0); URINE APPEARANCE CLEAR; URINE BILIRUBIN NEGATIVE (NEGATIVE); URINE COLOR YELLOW; URINE GLUCOSE (UA) NEGATIVE (NEGATIVE); URINE KETONE NEGATIVE (NEGATIVE); URINE LEUK ESTERASE NEGATIVE (NEGATIVE); URINE NITRITE NEGATIVE (NEGATIVE); URINE PROTEIN NEGATIVE (NEGATIVE); URINE UROBILINOGEN 0.2 mg/dL (0.2-1.0)
== END 2019-06-11 10:30 | disposition home or self-care (01) ==
LOC: JER 06:20
PROC: 3E0337Z Introduction of Electrolytic and Water Balance Substance into Peripheral Vein, Percutaneous Approach (ICD-10-PCS; principal; 2019-06-11)
PROC: 3E033GC Introduction of Other Therapeutic Substance into Peripheral Vein, Percutaneous Approach (ICD-10-PCS; 2019-06-11)
DX: K21.9 Gastro-esophageal reflux disease without esophagitis (principal); F41.9 Anxiety disorder, unspecified; F32.9 Major depressive disorder, single episode, unspecified; Z90.710 Acquired absence of both cervix and uterus; Z88.0 Allergy status to penicillin; Z91.048 Other nonmedicinal substance allergy status
CPT/HCPCS: 36415; 80053; 81003; 82272; 83690; 85025; 87086; 99282-25; J7030

== ENCOUNTER 2023-08-25 01:48 | Emergency (ER) | payer OTHER ==
[2023-08-25 01:58] VITALS: BP 128/84; PULSE 96; RESP 19; TEMP 99.1; BMI 28.3
[2023-08-25] MEDS ORDERED: CLINDAMYCIN HCL 150 MG CAPSULE (FP) ONE (02:36)
[2023-08-25] MEDS: CLINDAMYCIN HCL 150 MG CAPSULE (FP) PO ONE (02:37)
[2023-08-25] MEDS ORDERED: KETOROLAC TROMETHAMINE 30 MG/1 ML VIAL ONE (02:39)
[2023-08-25] MEDS: KETOROLAC TROMETHAMINE 30 MG/1 ML VIAL IM ONE (02:40)
[2023-08-25] MEDS ORDERED: metroNIDAZOLE 250 MG TABLET ONE (03:11)
[2023-08-25] MEDS: metroNIDAZOLE 250 MG TABLET PO ONE (03:12)
== END 2023-08-25 03:41 | disposition home or self-care (01) ==
LOC: JER 01:48
PROC: 3E0233Z Introduction of Anti-inflammatory into Muscle, Percutaneous Approach (ICD-10-PCS; principal; 2023-08-25)
DX: K08.89 Other specified disorders of teeth and supporting structures (principal); K02.9 Dental caries, unspecified; R68.83 Chills (without fever)
CPT/HCPCS: 99284-25